=== PATIENT | male | born 1990 | race Caucasian/White ===

== ENCOUNTER 2021-07-15 12:10 | Outpatient (REF) | payer OTHER, SELFPAY ==
[2021-07-15 14:29] LABS: Alanine Aminotransferase 64 U/L (0-40); Albumin Level 4.5 g/dL (3.5-5.0); Alkaline Phosphatase 85 U/L (39-117); Anion Gap 12 (12-20); Aspartate Amino Transferase 24 U/L (5-37); Bilirubin Total 0.6 mg/dL (0.0-1.0); Blood Urea Nitrogen 15 mg/dL (9-16); Calcium 10.3 mg/dL (8.4-10.2); Carbon Dioxide 30 mmol/L (22-29); Chloride 105 mmol/L (96-108); Cholesterol 190 mg/dL; Estimated Glomerular Filt Rate > 60; Glucose Fasting 80 mg/dL (60-99); HDL Cholesterol 41 mg/dL; LDL Cholesterol Calculated 124 mg/dl; Potassium 4.3 mmol/L (3.3-5.1); Sodium 143 mmol/L (135-145); Triglycerides 129 mg/dL
[2021-07-15 14:50] LABS: TSH reflex Free T4 1.29 uIU/mL (0.32-4.0)
[2021-07-19 12:41] LABS: Testosterone, Total 207 ng/dL (250-1100)
== END 2021-07-15 12:11 | disposition home or self-care (01) ==
LOC: HO.HMGCLDS 12:10
PROVIDERS: PCP Nurse Practitioner Family; Visit Provider Nurse Practitioner Family
DX: Z00.00 Encounter for general adult medical examination without abnormal findings (principal); Z13.220 Encounter for screening for lipoid disorders; Z13.29 Encounter for screening for other suspected endocrine disorder
CPT/HCPCS: 36415; 80053; 80061; 84403; 84443

== ENCOUNTER 2021-09-02 14:08 | Outpatient (REF) | payer OTHER, SELFPAY ==
[2021-09-02 16:32] LABS: Appearance Urine CLEAR; Color Urine YELLOW; Glucose Urine UA NEG (NEG); Leukocyte Esterase Urine NEG (NEG); Nitrite Urine NEG (NEG); PH 6.5 (5.0-8.0); Urine Blood NEG (NEG); Urine Ketones 5 MG/DL (NEG); Urine Protein NEG (NEG-TRACE)
== END 2021-09-02 14:09 | disposition home or self-care (01) ==
LOC: HO.HMGCLNP 14:08
PROVIDERS: Visit Provider Nurse Practitioner Family
DX: Z00.00 Encounter for general adult medical examination without abnormal findings (principal)
CPT/HCPCS: 81003

== ENCOUNTER 2023-03-05 15:56 | Outpatient (AMB) | payer OTHER, SELFPAY ==
--- NOTE | 2023-03-05 11:09 | A.OFFVIS_ITS ---
Intake Intake Visit Reasons: 1m/balanitis Intake Note: Patient presents today for a follow-up on Balanitis: Meds- None Allergies to Antibiotic- No Known Allergies Blood Thinner- None [employer] Required: No Accompanied by: Self / Same As Patient Allergies No Known Allergies Allergy (Verified 04/22/23 14:32) HPI HPI Comments History of Present Illness Details Julio is a 32-year-old male who presents toady to the office for a 1 month follow-up. 03/05/2023? Julio is followed due to balanitis. He was last seen by me on 05/29/2022 for balanitis. Ketoconazole 2% was ordered at that time.? Circumcision discussed pending improvement in symptoms with antifungal cream. Patient states that the trouble with retracting the foreskin has been worsening at this time. He states that the antifungal creams did not help him. He denies any burning with urination. Review of charts: Last visit: 05/29/2022? Julio is a 32 year old male who is here for evaluation before phimosis.? He states that he is in a monogamous relationship.? He states that he has had trouble with retracting the foreskin which started 4 month ago after the of his son.? He denies irritative voiding symptoms.? He states he has pain with erections.? He states that his PCP gave him a cream to and he admits he has not been using the cream every day.? In review of his medication last he has been prescribed betamethasone cream.? On examination there is balanitis of the foreskin I a.m. able to retract the foreskin over the glans.? I have discussed that I would like to use a combination steroid and antifungal cream.? I have discussed that if the condition does not improve with the antifungal/steroid creams that circumcision may be considered. Plan:Ketoconazole 2%, fu in 3-4 wks; Circumcision discussed pending improvement in symptoms with antifungal cream. 03/05/2023: Plan: Consent form was obtained for circumcision procedure. [facility] Medical History GERD (gastroesophageal reflux disease) Surgical History S/P lumbar microdiscectomy Hx of cholecystectomy Hx of circumcision History of surgery H/O wrist surgery Family History Father HTN (hypertension) Heart disease Mother No problems noted. Brother No problems noted. Brother No problems noted. Sister No problems noted. Maternal Grandmother No problems noted. Maternal Grandfather No problems noted. Paternal Grandfather No problems noted. Paternal Grandmother No problems noted. Social History Housing: House Alcohol intake: current Alcohol intake frequency: holidays/special occasions only Patient Tobacco Use Status: Never used Tobacco e-Cigarette/Vaping Use: Never Used Second Hand Smoke Exposure: No service: Yes Current occupational status: employed Current occupation: [employer] Current occupational exposures/hazards: No Cognitive needs: No Hearing needs: No Vision needs: No Review of Systems Const All systems reviewed & are unremarkable except as noted in HPI and below Reports no additional complaints Eyes Reports no additional complaints ENT Reports no additional complaints Card Denies dyspnea Resp Denies cough and Denies dyspnea GI Reports no additional complaints Musc Reports no additional complaints Skin/Breast Denies rash and Denies unusual bruising Neuro Reports no additional complaints Psych Reports no additional complaints Endo Reports no additional complaints Edson/Lymph Reports no additional complaints Aller/Immun Reports no additional complaints Assessment & Plan Assessment & Plan (1) Balanitis: Code(s): N48.1 - Balanitis (2) Phimosis: Code(s): N47.1 - Phimosis Plan Consent form was obtained for circumcision procedure. Patient Instructions: The patient had an opportunity to ask questions regarding treatment plan. All questions were answered. Imaging, Laboratory studies and physical exam results were discussed and reviewed in detail. No major barriers to understanding were identified. The patient expressed understanding and agreement with the above treatment plan.? ? ? The patient is aware they should contact our office by phone for worsening of their current condition or the appearance of new symptoms. Compliance is encouraged with any medications and followup testing that is ordered.? ? ? It is a privilege to be allowed the opportunity to participate in the urologic care of your patient. If you have any questions or concerns regarding treatment for the above conditions please do not hesitate to contact me. The office telephone contact is [phone].? ? ? This note is constructed in part using voice recognition software. While every effort has been made to ensure accuracy guide escort errors may have been included.? ? ? Yours sincerely,? ? ? Quentin Samuel MD? Coding Level of Care Code Est Pt Level 3 (04239) Diagnoses Balanitis N48.1 Phimosis N47.1
== END 2023-03-05 16:30 | disposition home or self-care (01) ==
PROVIDERS: PCP Nurse Practitioner Family; Visit Provider Urology
DX: N48.1 Balanitis (principal); N47.1 Phimosis
CPT/HCPCS: 99213

== ENCOUNTER → 2023-03-05 15:56 | Outpatient (BNVA) | payer SELFPAY | PROVIDERS: PCP Nurse Practitioner Family; Visit Provider Urology | DX: N48.1 Balanitis (principal); N47.1 Phimosis | CPT/HCPCS: 99212 ==

== ENCOUNTER 2023-03-10 08:42 | Day surgery (SDC) | payer OTHER, SELFPAY ==
[2023-03-10 08:57] VITALS: BMI 32.3
[2023-03-10 09:16] VITALS: BP 148/75; PULSE 69; RESP 18; TEMP 36.7; O2SAT 98
--- NOTE | 2023-03-10 10:29 | HO.ANESPROP2 ---
HPI - Anesthesia Eval Consult details Narrative: 32 yo male patient for Circumcision PMFSH Active Problems Active Problems: All Active Problems (Updated 03/10/23 @ 10:30 by Chely Lara MD) Physical exam (Acute) Balanitis (Acute) Insomnia (Acute) Tinnitus (Acute) Phimosis (Acute) Eyelid cyst (Acute) S/P cholecystectomy (Acute) GERD (gastroesophageal reflux disease) (Acute) Impacted cerumen of left ear (Acute) Physical exam (Acute) Palpable lymph node (Acute) Cervical adenopathy (Acute) Abscess (Acute) Snores but denies PACO Family History Family History Father HTN (hypertension) Heart disease Mother No problems noted. Brother No problems noted. Brother No problems noted. Sister No problems noted. Maternal Grandmother No problems noted. Maternal Grandfather No problems noted. Paternal Grandfather No problems noted. Paternal Grandmother No problems noted. Family history of problems with anesthesia: No Surgical History Surgical History H/O wrist surgery History of surgery History of Problems with Anesthesia: No Social History Social History Housing: House Alcohol intake: current Alcohol intake frequency: holidays/special occasions only Patient Tobacco Use Status: Never used Tobacco e-Cigarette/Vaping Use: Never Used Second Hand Smoke Exposure: No Are you DNR?: No Advance Directives: No Advance Directives Information Provided: Yes Nutrition Risks: No Nutritional Risk service: Yes Current occupational status: employed Current occupation: [employer] Current occupational exposures/hazards: No Cognitive needs: No Hearing needs: No Vision needs: No Meds Allergies Allergy/AdvReac Type Severity Reaction Status Date / Time No Known Allergies Allergy Verified 03/10/23 09:22 Home Medications Medication Instructions Recorded Confirmed Last Taken Type No Known Home Meds 03/10/23 03/10/23 Unknown History Exam Exam Date and Time: March 10, 2023 1029 Height,Weight and Vital Signs: Height 5 ft 6 in Weight 90.718 kg Last Vital Signs Temp 98.1 F 03/10/23 09:16 Pulse 69 03/10/23 09:16 Resp 18 03/10/23 09:16 BP 148/75 H 03/10/23 09:16 Pulse Ox 98 03/10/23 09:16 O2 Del Method Room Air 03/10/23 09:16 Airway Mallampati Class: II TM Dist: >3cm Neck ROM: Full Loose/Missing/Broken Teeth: No (Denies broken, loose, missing teeth) Heart: RRR Lungs: CTAB Assessment and Plan Assessment Anesthesia Assessment: Anesthesia Plan Discussed and Chart Reviewed Final Anesthetic Review Family History of Problems with Anesthesia: No History of Problems with Anesthesia: No NPO: Yes ASA Class: I Final Preanesthetic Review: No Changes in Pt Med Stat, Meds/Allgs Chart Reviewed, Consent Obtained/Reviewed and Anes Risks/Benef Reviewed Patient Risk: Low Procedure Risk: Low Assessment/Block/Sedation in SS: Assess/Block/Sedation-SS Anesthetic Plan Anesthetic Plan: GA Disposition: Standard PACU
[2023-03-10] MEDS: Lactated Ringers 1,000 ML 100 ML IVCONT (11:00)
--- NOTE | 2023-03-10 11:40 | MHC.SHP ---
Pre-Procedural Eval Section A Date of Service: 03/10/23 The patient is an INPATIENT: No The History & Physical has been completed within 30 days and I have reviewed it.: Yes Section B Chief Complaint: Balanitis Allergies: Allergies Allergy/AdvReac Type Severity Reaction Status Date / Time No Known Allergies Allergy Verified 03/10/23 09:22 Plan Diagnosis/Plan: Unchanged I have reviewed the history and physical and performed a pertinent physical examination on my patient. No changes have occurred unless specified. Circumsicion. Time Spent With Patient Time: Total time managing care of this patient today ____ minutes.
--- NOTE | 2023-03-10 13:28 | W.PM.OPN ---
Operative Note Operative Note Date of Service: 03/10/23 Narrative: PreOperative Diagnosis:? ? Recurrent Balanitis, redundant foreskin Post Operative Diagnosis:?Recurrent Balanitis, redundant foreskin Procedure:?Circumcision Surgeon:?Dr Quentin Samuel Anesthesia:? General Procedure: After informed consent was verified the patient was brought to the operating room and placed in a supine position.? Anesthesia was performed per protocol. The patient was prepped and draped in the usual sterile fashion. Safety pause time-out was performed. Antibiotics confirmed. Penile block was performed. With the foreskin over the glans a circumferential incision is made at the level of the whitaker. The fore skin was then retracted and a circumferential incision was made 0.5 cm below the whitaker. The foreskin is removed with cautery. The skin is closed in 4 quadrants with 4-0 chromic, each quadrant closed with interrupted 4-0 chromic, bacitracin ointment was used over the incision and incision covered with cling. The patient tolerated the procedure well and was transferred to the recovery area upon completion. Complications: None
[2023-03-10 13:30] VITALS: BP 121/72; PULSE 93; RESP 16; TEMP 36.3; O2SAT 97
[2023-03-10 13:35] VITALS: BP 139/74; PULSE 91; RESP 16; O2SAT 96
[2023-03-10 13:40] VITALS: BP 126/76; PULSE 83; RESP 16; O2SAT 96
[2023-03-10 13:45] VITALS: BP 136/71; PULSE 82; RESP 18; O2SAT 94
[2023-03-10] MEDS: Acetaminophen 325 MG TABLET 975 MG PO (13:52)
[2023-03-10 13:54] VITALS: BP 130/69; PULSE 78; RESP 18; TEMP 36.3; O2SAT 94
== END 2023-03-10 14:21 | disposition home or self-care (01) ==
PROVIDERS: PCP Nurse Practitioner Family; Visit Provider Urology
PROC: (CPT 54161; principal; 2023-03-10 10:30)
DX: N48.1 Balanitis (principal); N47.1 Phimosis
CPT/HCPCS: 54161; 88304; J0690; J1100; J2250; J2405; J2795; J3010

== ENCOUNTER → 2023-03-10 08:42 | Outpatient (BNV) | payer OTHER, SELFPAY | PROVIDERS: PCP Nurse Practitioner Family; Visit Provider Urology | DX: N48.1 Balanitis (principal) | CPT/HCPCS: 54161 ==

== ENCOUNTER → 2023-03-18 15:23 | Outpatient (BNVA) | payer OTHER, SELFPAY | PROVIDERS: PCP Nurse Practitioner Family; Visit Provider Urology ==

== ENCOUNTER 2023-04-22 14:17 | Outpatient (AMB) | payer OTHER, SELFPAY ==
--- NOTE | 2023-04-22 14:30 | MHC.OFFVIS ---
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 04/22/23: The patient underwent circumcision on 03/10/23 for recurrent balanitis and redundant foreskin. He states that the initial day of the recovery was rough, but eventually got better. He was concerned about the numbness on the left side of the glans. He did have an intercourse x 1. He had a normal erection and was able to ejaculate. I discussed with the patient that he is still in the healing process. I have indicated that the sensation may not be exactly the same as before the circumcision. He states that he understood, and he is instructed to call for any concerns. 03/10/23 ? surgical pathology results reviewed: Foreskin, excision: Skin with features of lichen sclerosus, no evidence of dysplasia or malignancy. Plan: I discussed with the patient that he is still in the healing process. I have indicated that the sensation may not be exactly the same as before the circumcision. He states that he understood, and he is instructed to call for any concerns. The patient will follow up. P.R.N.? [facility] Medical History GERD (gastroesophageal reflux disease) Surgical History S/P lumbar microdiscectomy Hx of cholecystectomy Hx of circumcision History of surgery H/O wrist surgery Family History Father HTN (hypertension) Heart disease Mother No problems noted. Brother No problems noted. Brother No problems noted. Sister No problems noted. Maternal Grandmother No problems noted. Maternal Grandfather No problems noted. Paternal Grandfather No problems noted. Paternal Grandmother No problems noted. Social History Housing: House Alcohol intake: current Alcohol intake frequency: holidays/special occasions only Patient Tobacco Use Status: Never used Tobacco e-Cigarette/Vaping Use: Never Used Second Hand Smoke Exposure: No service: Yes Current occupational status: employed Current occupation: [employer] Current occupational exposures/hazards: No Cognitive needs: No Hearing needs: No Vision needs: No Review of Systems Const All systems reviewed & are unremarkable except as noted in HPI and below Reports no additional complaints Eyes Reports no additional complaints ENT Reports no additional complaints Card Reports no additional complaints Resp Reports no additional complaints GI Reports no additional complaints Musc Reports no additional complaints Skin/Breast Reports system reviewed and no additional complaints, except as documented Neuro Reports no additional complaints Psych Reports no additional complaints Endo Reports no additional complaints Edson/Lymph Reports no additional complaints Aller/Immun Reports no additional complaints Physical Exam Const General: healthy appearing, no acute distress and well developed Orientation/consciousness: patient oriented x3 HEENT Head: Yes normocephalic and Yes atraumatic Eyes Conjunctivae: conjunctivae normal Neck Neck: Yes normal visual inspection Chest Chest palpation & inspection: normal inspection of the chest Resp Effort & Inspection: normal respiratory effort Cardio Rate: regular rate GI Inspection: Yes normal to inspection Skin Other: Incision area is well healed. No sign of the infection. General skin exam: no rashes or lesions noted Neuro General: patient oriented x3 Extrem General: Yes no pedal edema Psych Appearance: grossly normal Affect: normal affect Assessment & Plan Assessment & Plan (1) Balanitis: Code(s): N48.1 - Balanitis (2) Phimosis: Code(s): N47.1 - Phimosis (3) Status post routine circumcision: Code(s): Z98.890 - Other specified postprocedural states Plan I discussed with the patient that he is still in the healing process. I have indicated that the sensation may not be exactly the same as before the circumcision. He states that he understood, and he is instructed to call for any concerns. The patient will follow up. P.R.N.? Patient Instructions: The patient had an opportunity to ask questions regarding treatment plan. All questions were answered. Imaging, Laboratory studies and physical exam results were discussed and reviewed in detail. No major barriers to understanding were identified. The patient expressed understanding and agreement with the above treatment plan. The patient is aware they should contact our office by phone for worsening of their current condition or the appearance of new symptoms. Compliance is encouraged with any medications and followup testing that is ordered. It is a privilege to be allowed the opportunity to participate in the urologic care of your patient. If you have any questions or concerns regarding treatment for the above conditions please do not hesitate to contact me. The office telephone contact is [phone]. This note is constructed in part using voice recognition software. While every effort has been made to ensure accuracy research consultant errors may have been included. Yours sincerely, Quentin Samuel MD Coding Level of Care Code Est Pt Level 3 (24603) Diagnoses Balanitis N48.1 Phimosis N47.1 Status post routine circumcision Z98.890
== END 2023-04-22 14:41 | disposition home or self-care (01) ==
PROVIDERS: PCP Nurse Practitioner Family; Visit Provider Urology
DX: N48.1 Balanitis (principal); N47.1 Phimosis; Z98.890 Other specified postprocedural states
CPT/HCPCS: 99213

== ENCOUNTER → 2023-04-22 14:17 | Outpatient (BNVA) | payer OTHER, SELFPAY | PROVIDERS: PCP Nurse Practitioner Family; Visit Provider Urology | DX: N48.1 Balanitis (principal); N47.1 Phimosis; Z98.890 Other specified postprocedural states | CPT/HCPCS: 99212 ==

== ENCOUNTER 2023-07-15 07:34 | Outpatient (AMB) | payer OTHER, SELFPAY ==
--- NOTE | 2023-07-15 07:42 | MHC.PC.OV ---
Vital Signs 07/15/23 07:44 Height 5 ft 6.5 in Weight 205 lb BMI 32.6 BP 120/68 Blood Pressure Location Lt brachial Position Sitting Pulse 74 Pulse Source Pulse Oximeter Pulse Oximetry (%) 99 Oxygen Delivery Method Room Air Intake Visit Reasons: annual PE Intake Note: Pt is here today for his PE Allergies No Known Allergies Allergy (Verified 07/15/23 07:45) Medication List - Last Reconciled 07/15/23 by SERGIO Jimenez meloxicam 7.5 mg PO DAILY Tobacco use date assessed: 07/15/23 Dental Screening Dental Screen Date: 07/15/23 Did you have a dental visit in the last 12 months?: Yes Did you have a dental problem in the last 6 months where you did not have access to dental care?: No Was dental information given to patient?: Patient has dentist HPI annual PE HPI Details pt is here for a PE. He offers no questions or concerns. He will be following up with urology for possible TRT (pt reported has not taken steroids/testosterone supplement in over 3 months) [facility] Medical History GERD (gastroesophageal reflux disease) Surgical History S/P lumbar microdiscectomy Hx of cholecystectomy Hx of circumcision History of surgery H/O wrist surgery Family History Father HTN (hypertension) Heart disease Mother No problems noted. Brother No problems noted. Brother No problems noted. Sister No problems noted. Maternal Grandmother No problems noted. Maternal Grandfather No problems noted. Paternal Grandfather No problems noted. Paternal Grandmother No problems noted. Social History Housing: House Alcohol intake: current Alcohol intake frequency: holidays/special occasions only Patient Tobacco Use Status: Never used Tobacco e-Cigarette/Vaping Use: Never Used Second Hand Smoke Exposure: No service: Yes Current occupational status: employed Current occupation: [employer] Current occupational exposures/hazards: No Cognitive needs: No Hearing needs: No Vision needs: No Questionnaire PHQ-9 Over the last 2 weeks, how often have you been bothered by any of the following problems? 1. Little interest or pleasure in doing things: not at all 2. Feeling down, depressed, or hopeless: not at all 3. Trouble falling or staying asleep, or sleeping too much: not at all 4. Feeling tired or having little energy: several days 5. Poor appetite or overeating: not at all 6. Feeling bad about yourself - or that you are a failure or have let yourself or your family down: not at all 7. Trouble concentrating on things, such as reading the newspaper or watching television: not at all 8. Moving or speaking so slowly that other people could have noticed. Or the opposite - being so fidgety or restless that you have been moving around a lot more than usual: not at all 9. Thoughts that you would be better off or of hurting yourself in some way: not at all Total score: 1 Depression Screening Interpretation: Negative Depression Screening Done: Yes 87248 - PHQ-9 Billing: Yes Source: Developed by Drs. Schuyler Holbrook, Ana Maloney, Isaac Vigil and colleagues, with an educational neena from [employer]. Thrive Questionnaire Date Thrive assessed: 07/15/23 I am a: Patient What is your living situation today?: I have a steady place to live Within the past 12 months, did the food you bought not last and you didn't have the money to get more?: Never true Within the past 12 months, did you worry whether your food would run out before you got money to buy more?: Never true Do you have trouble paying for medicines?: No Do you have trouble getting transportation to medical appointments?: No Do you have trouble paying your heating and electricity bill?: No Do you have trouble taking care of your child, family member or friend?: No Do you have trouble with day-to-day activities such as bathing, preparing meals, shopping, managing finances, etc.?: No Are you currently unemployed and looking for a job?: No Are you interested in more education?: No Currently or been in a relationship where the following occur: no concerns reported AUDIT C Alcohol Use Questionnaire (AUDIT-C) 1. How often do you have a drink containing alcohol?: Monthly or less 2. How many drinks containing alcohol do you have on a typical day when you are drinking?: 1 or 2 3. How often do you have six or more drinks on one occasion?: Never Total Score: 1 Score Reviewed/Action Taken: No FATOU-7 AMB Questionnaire FATOU-7 Date FATOU - 7 assessed: 07/15/23 Feeling nervous, anxious, or on edge: 3 = Nearly every day Not being able to stop or control worryin = Not at all Worrying too much about different things: 0 = Not at all Trouble relaxin = Not at all Being so restless that it is hard to sit still: 0 = Not at all Becoming easily annoyed or irritable: 0 = Not at all Feeling afraid as if something awful might happen: 0 = Not at all Total FATOU-7 score (0-4 normal; 5-9 mild; 10-14 moderate; 15-21 severe): 3 Source: Developed by Drs. Schuyler Holbrook, Ana Maloney, Isaac Vigil and colleagues, with an educational neena from [employer]. FATOU-7 Assessment Billing FATOU-7 Assessment Tool: FATOU-7 Assessment 41418 Review of Systems Const Denies chills and Denies fever(s) Eyes Denies blurry vision ENT Denies vertigo, Denies dizziness and Denies sore throat Card Denies chest pain at rest, Denies chest pain with activity, Denies diaphoresis, Denies dyspnea and Denies dyspnea on exertion Resp Denies cough, Denies dyspnea, Denies dyspnea on exertion and Denies wheezing GI Denies abdominal pain, Denies melena, Denies hematochezia, Denies constipation, Denies diarrhea and Denies loose stools Denies hematuria Musc Denies numbness and Denies tingling Skin/Breast Denies lesions Neuro Denies vertigo, Denies dizziness, Denies numbness and Denies tingling Psych Denies anxiety, Denies depression, Denies homicidal ideation, Denies suicidal ideation and Denies other (substance abuse) Aller/Immun Denies wheezing Physical exam (Primary Care) Vital Signs: Last Vital Signs Pulse 74 07/15/23 07:44 BP 120/68 07/15/23 07:44 Pulse Ox 99 07/15/23 07:44 Oxygen Delivery Method Room Air 07/15/23 07:44 BMI result Body Mass Index 32.6 Tobacco/Smoking Status: Tobacco use Status Tobacco use date assessed 07/15/23 07/15/23 07:47 Patient Tobacco Use Status Never used Tobacco 07/15/23 07:44 e-Cigarette/Vaping Use Never Used 07/15/23 07:44 Depression Screening Interpretation: Negative Thrive Assessment: Date of Thrive Assessment Date Thrive assessed 04/22/22 07/15/23 07:44 Currently or been in a relationship where the following occur: no concerns reported Const General: cooperative Nutritional Appearance: well nourished Orientation/consciousness: patient oriented x3 HENMT Head: Yes normal to inspection, Yes normocephalic and Yes atraumatic Ears: TM normal on the right and TM normal on the left Eyes General: appearance normal, both eyes and all related structures Alignment and Position: alignment normal and position normal Neck Neck: Yes normal visual inspection and Yes no lymphadenopathy Resp Effort & Inspection: normal respiratory effort Auscultation: clear to auscultation bilaterally Cardio Rate: regular rate Rhythm: regular rhythm Heart sounds: S1 normal heart sound present, S2 normal heart sound present and no murmurs GI Palpation (GI): Soft to palpation and nontender Auscultation: normal bowel sounds Male General Exam: Yes normal external exam Penis: normal penis Scrotum: scrotum normal, testes descended bilaterally and no inguinal hernias Testes: no testicular mass Skin Rashes: no rashes Neuro General: patient oriented x3, moves all extremities, no focal motor deficits and deep tendon reflexes 2+ bilaterally Romberg Test: Negative Extrem Right lower extremity: no edema Left lower extremity: no edema Psych Affect: normal affect Attitude: cooperative Thought process: Normal thought process present Assessment and Plan Assessment & Plan (1) Physical exam: Code(s): Z00.00 - Encounter for general adult medical examination without abnormal findings (2) Physical exam: Code(s): Z00.00 - Encounter for general adult medical examination without abnormal findings Orders: Orders TSH reflex Free T4 Today Z00.00 - Encounter for general adult medical examination without abnormal findings UA CC w/rflx Micro + Cult Today Z00.00 - Encounter for general adult medical examination without abnormal findings Lipid Panel Today Z00.00 - Encounter for general adult medical examination without abnormal findings Complete Blood Count Auto Diff Today Z00.00 - Encounter for general adult medical examination without abnormal findings Comprehensive [place]. Panel Fast Today Z00.00 - Encounter for general adult medical examination without abnormal findings Coding Level of Care Code Est Pt Prev Care 18-39y(12742) Diagnoses Physical exam Z00.00 Additional Codes FATOU-7 Assessment Billing - FATOU-7 Assessment Tool: FATOU-7 Assessment [id number] ([id number])
[2023-07-15 07:44] VITALS: BP 120/68; PULSE 74; O2SAT 99; BMI 32.6
== END 2023-07-15 10:20 | disposition home or self-care (01) ==
PROVIDERS: Visit Provider Nurse Practitioner Family
DX: Z00.00 Encounter for general adult medical examination without abnormal findings (principal)
CPT/HCPCS: 99395

== ENCOUNTER 2023-08-03 08:37 | Outpatient (AMB) | payer OTHER, SELFPAY ==
--- NOTE | 2023-08-03 08:44 | AM.OFFWIN_ITS ---
Intake Vital Signs 08/03/23 08:45 Height 5 ft 6.5 in Weight 202 lb BMI 32.1 BP 122/78 Blood Pressure Location Lt brachial Position Sitting Pulse 76 Pulse Source Pulse Oximeter Temp 98.0 F Temp Source Oral Pulse Oximetry (%) 98 Oxygen Delivery Method Room Air Intake Visit Reasons: EP Lump/Cyst tailbone [phone] Intake Note: pt is here for lump possible cyst on tailbone, patient states he thinks it popped/drained on thursday and wants to make sure its OK Patient Tobacco Use Status: Never used Tobacco Allergies No Known Allergies Allergy (Verified 08/03/23 08:45) Do you need a note to return to daycare/school/sports/work: Yes HPI EP Lump/Cyst tailbone [phone] HPI Details 33 yr old male presents to the office fo r a sick visit. Patient reports he has a small swelling at the end of his tailbone. Two days ago the swelling popped and little fluid came out. Would like the area examined. [facility] Medical History GERD (gastroesophageal reflux disease) Surgical History S/P lumbar microdiscectomy Hx of cholecystectomy Hx of circumcision History of surgery H/O wrist surgery Family History Father HTN (hypertension) Heart disease Mother No problems noted. Brother No problems noted. Brother No problems noted. Sister No problems noted. Maternal Grandmother No problems noted. Maternal Grandfather No problems noted. Paternal Grandfather No problems noted. Paternal Grandmother No problems noted. Social History Housing: House Alcohol intake: current Alcohol intake frequency: holidays/special occasions only Patient Tobacco Use Status: Never used Tobacco e-Cigarette/Vaping Use: Never Used Second Hand Smoke Exposure: No service: Yes Current occupational status: employed Current occupation: [employer] Current occupational exposures/hazards: No Cognitive needs: No Hearing needs: No Vision needs: No Physical Exam Vital Signs: Last Vital Signs Temp 98.0 F 08/03/23 08:45 Pulse 76 08/03/23 08:45 BP 122/78 08/03/23 08:45 Pulse Ox 98 08/03/23 08:45 Oxygen Delivery Method Room Air 08/03/23 08:45 BMI result Body Mass Index 32.1 Back/Spine/Pelvis Other: Sacrum: No lump palpable. No erythematous area. Assessment & Plan Assessment & Plan (1) Cyst near coccyx: Code(s): L05.91 - Pilonidal cyst without abscess Plan: The swelling could have been a small cyst which is no longer present. Reassurance. Coding Level of Care Code Est Pt Level 3 (74490) Diagnoses Cyst near coccyx L05.91
[2023-08-03 08:45] VITALS: BP 122/78; PULSE 76; TEMP 36.7; O2SAT 98; BMI 32.1
== END 2023-08-03 10:40 | disposition home or self-care (01) ==
PROVIDERS: PCP Nurse Practitioner Family; Visit Provider Internal Medicine
DX: L05.91 Pilonidal cyst without abscess (principal)
CPT/HCPCS: 99213

== ENCOUNTER 2023-08-03 09:18 | Outpatient (REF) | payer OTHER, SELFPAY ==
[2023-08-03 11:27] LABS: Appearance Urine Clear; Color Urine Yellow; Glucose Urine UA Negative (Negative); Leukocyte Esterase Urine Negative (Negative); Nitrite Urine Negative (Negative); PH 5.5 (5.0-9.0); Specific Gravity - Urine 1.025 (1.005-1.025); Urine Blood Negative (Negative); Urine Ketones Trace mg/dL (Negative); Urine Protein Negative (Neg-Trace)
[2023-08-03 11:41] LABS: MANUAL DIFF FLAG NO
[2023-08-03 12:32] LABS: Alanine Aminotransferase 40 U/L (0-40); Albumin Level 4.1 g/dL (3.5-5.0); Alkaline Phosphatase 63 U/L (39-117); Anion Gap 9 (12-20); Aspartate Amino Transferase 21 U/L (5-37); Bilirubin Total 0.5 mg/dL (0.0-1.0); Blood Urea Nitrogen 14 mg/dL (9-16); Calcium 9.8 mg/dL (8.4-10.2); Carbon Dioxide 31 mmol/L (22-29); Chloride 108 mmol/L (96-108); Cholesterol 146 mg/dL (<200); Estimated Glomerular Filt Rate > 60; Glucose Fasting 90 mg/dL (60-99); HDL Cholesterol 36 mg/dL (>40); LDL Cholesterol Calculated 95 mg/dL (<100); Potassium 4.2 mmol/L (3.3-5.1); Sodium 144 mmol/L (135-145); TSH reflex Free T4 0.63 uIU/mL (0.32-4.0); Total Protein 7.5 g/dL (6.5-8.0); Triglycerides 77 mg/dL (<150)
[2023-08-03 12:49] LABS: Basophils Percent Auto 0.6 % (0-2); Eosinophils Absolute Auto 0.1 X10*3/uL (0.0-0.4); Eosinophils Percent Auto 1.5 % (0-4); Hematocrit 45.6 % (42.0-52.0); Hemoglobin 15.3 g/dl (14.0-18.0); Imm Gran Abs Auto 0.03 X10*3/uL (0.00-0.03); Imm Gran Pct Auto 0.6 % (0.0-0.4); Lymphocytes Absolute Auto 1.6 X10*3/uL (1.2-4.9); Lymphocytes Percent Auto 34.8 % (20-40); Mean Corpuscular HGB Conc 33.6 g/dl (31.0-36.0); Mean Corpuscular Hemoglobin 28.1 pg (27.0-33.0); Mean Corpuscular Volume 83.8 fL (80.0-98.0); Mean Platelet Volume 10.6 fL (9.4-12.4); Monocytes Absolute Auto 0.2 X10*3/uL (0.1-1.2); Monocytes Percent Auto 4.9 % (2-11); Neutrophils Absolute Auto 2.7 x10*3/uL (2.0-8.3); Neutrophils Percent Auto 57.6 % (45-73); Platelet Count 218 X10*3/uL (160-400); Red Blood Count 5.44 X10*6/uL (4.60-5.80); Red Cell Distribution Width 12.3 % (11.0-16.0); White Blood Count 4.7 X10*3/uL (4.8-10.8)
[2023-08-17 15:03] LABS: Testosterone, Total 252 ng/dL (250-1100)
== END 2023-08-03 09:19 | disposition home or self-care (01) ==
LOC: HO.HMGCLDS 09:18
PROVIDERS: PCP Nurse Practitioner Family; Referring Provider Urology; Visit Provider Nurse Practitioner Family
DX: Z00.00 Encounter for general adult medical examination without abnormal findings (principal); Z13.9 Encounter for screening, unspecified
CPT/HCPCS: 36415; 80053; 80061; 81003; 84402; 84403; 84443; 85025

== ENCOUNTER 2023-08-20 08:32 | Outpatient (REF) | payer OTHER, SELFPAY ==
--- NOTE | ~2023-08-20 | XR_ITS ---
EXAMINATION: XR LUMBOSACRAL SPINE CLINICAL INFORMATION: Reason for Exam M54.50 - Low back pain, unspecified COMPARISON: Lumbar spine radiographs 09/21/2017 TECHNIQUE: 3 views of the lumbar spine FINDINGS: 5 nonrib-bearing lumbar-type vertebral bodies. Few small Schmorl's nodes similar to prior. Vertebral body heights are otherwise maintained. Levoconvex curvature of the lumbar spine. Mild degenerative disc disease at L4-L5 and L5-S1 similar to prior. Right upper quadrant cholecystectomy clips. XR/XR lumbar spine 2-3V IMPRESSION: 1. Levoconvex curvature of the lumbar spine. 2. Mild degenerative disc disease at L4-L5 and L5-S1 similar to prior.
== END 2023-08-20 08:33 | disposition home or self-care (01) ==
LOC: HO.XRAY 08:32
PROVIDERS: PCP Nurse Practitioner Family; Visit Provider Urology
DX: M54.50 Low back pain, unspecified (principal); G89.29 Other chronic pain
CPT/HCPCS: 72100; 99212

== ENCOUNTER 2023-08-20 08:32 | Outpatient (AMB) | payer OTHER, SELFPAY ==
--- NOTE | 2023-08-20 08:47 | A.OFFVIS_ITS ---
Intake Intake Visit Reasons: follow up Intake Note: Patient presents today for a follow-up on Testosterone Labs Results: Meds- None Allergies to Antibiotic- No Known Allergies Blood Thinner- None Manager Of Sustainability Required: No Accompanied by: Self / Same As Patient Allergies No Known Allergies Allergy (Verified 08/03/23 08:45) HPI HPI Comments History of Present Illness Details 08/20/23 Julio is a 32-year-old male who p resents toady to the office for follow-up with concerns regarding low testosterone. He was evaluated for phimosis and balanitis, had circumcision done 03/10/23. He states that he has had fatigue and is concerned about having low testosterone. Discussed blood work for LH FSH, free and total testosterone and other markers Review of chart: 04/22/23: The patient underwent circumci angeles on 03/10/23 for recurrent balanitis and redundant foreskin. He states that the initial day of the recovery was rough, but eventually got better. He was concerned about the numbness on the left side of the glans. He did have an intercourse x 1. He had a normal erection and was able to ejaculate. I discussed with the patient that he is still in the healing process. I have indicated that the sensation may not be exactly the same as before the circumc ision. He states that he understood, and he is instructed to call for any concerns. Reviewed surgical pathology-- 03/10/23 ? surgical pathology results reviewed: Foreskin, excision: Skin with features of lichen sclerosus, no evidence of dysplasia or malignancy. 03/05/2023? Julio is followed due to balanitis. He was last seen by me on 05/29/2022 for balanitis. Ketoconazole 2% was ordered at that time.? Circumcision discussed pending improvement in symptoms with antifungal cream. Patient states that the trouble with retracting the foreskin has been worsening at this time. He states that the antifungal creams did not help him. He denies any burning with urination. Consent form was obtained for circumcision procedure. 05/29/2022? Julio is a 32 year old male who is here for evaluation before phimosis.? He states that he is in a monogamous relationship.? He states that he has had trouble with retracting the foreskin which started 4 month ago after the of his son.? He denies irritative voiding symptoms.? He states he has pain with erections.? He states that his PCP gave him a cream to and he admits he has not been using the cream every day.? In review of his medication last he has been prescribed betamethasone cream.? On examination there is balanitis of the foreskin I a.m. able to retract the foreskin over the glans.? I have discussed that I would like to use a combination steroid and antifungal cream.? I have discussed that if the condition does not improve with the antifungal/steroid creams that circumcision may be considered. Plan:Ketoconazole 2%, fu in 3-4 wks; Circumcision discussed pending improvement in symptoms with antifungal cream. 08/20/2023: Plan:LH FSH, free and total te stosterone and other markers PFSH Medical History GERD (gastroesophageal reflux disease) Surgical History S/P lumbar microdiscectomy Hx of cholecystectomy Hx of circumcision History of surgery H/O wrist surgery Family History Father HTN (hypertension) Heart disease Mother No problems noted. Brother No problems noted. Brother No problems noted. Sister No problems noted. Maternal Grandmother No problems noted. Maternal Grandfather No problems noted. Paternal Grandfather No problems noted. Paternal Grandmother No problems noted. Social History Housing: House Alcohol intake: current Alcohol intake frequency: holidays/special occasions only Patient Tobacco Use Status: Never used Tobacco e-Cigarette/Vaping Use: Never Used Second Hand Smoke Exposure: No service: Yes Current occupational status: employed Current occupation: [employer] Current occupational exposures/hazards: No Cognitive needs: No Hearing needs: No Vision needs: No Review of Systems Const All systems reviewed & are unremarkable except as noted in HPI and below Reports no additional complaints Eyes Reports no additional complaints ENT Reports no additional complaints Card Reports no additional complaints Resp Reports no additional complaints GI Reports no additional complaints Reports as per HPI Musc Reports no additional complaints Skin/Breast Reports system reviewed and no additional complaints, except as documented Neuro Reports no additional complaints Psych Reports no additional complaints Endo Reports no additional complaints Edson/Lymph Reports no additional complaints Aller/Immun Reports no additional complaints Assessment & Plan Assessment & Plan (1) Low testosterone in male: Code(s): R79.89 - Other specified abnormal findings of blood chemistry Plan LH FSH, free and total testosterone and other markers Patient Instructions: The patient had an opportunity to ask questions regarding treatment plan. All questions were answered. No major barriers to understanding were identified. The patient expressed understanding and agreement with the above treatment plan. The patient is aware they should contact our office by phone for worsening of their current condition or the appearance of new symptoms. Compliance is encouraged with any medications and followup testing that is ordered. It is a privilege to be allowed the opportunity to participate in the urologic care of your patient. If you have any questions or concerns regarding treatment for the above conditions please do not hesitate to contact me. The office telephone contact is [phone]. This note is constructed in part using voice recognition software. While every effort has been made to ensure accuracy primary special educator errors may have been included. Yours sincerely, Quentin Samuel MD Coding Level of Care Code Est Pt Level 3 (73304) Diagnoses Low testosterone in male R79.89
== END 2023-08-20 09:06 | disposition home or self-care (01) ==
LOC: HO.HUSH 08:32
PROVIDERS: PCP Nurse Practitioner Family; Visit Provider Urology
DX: R79.89 Other specified abnormal findings of blood chemistry (principal)
CPT/HCPCS: 99213

== ENCOUNTER 2023-09-07 10:23 | Outpatient (REF) | payer OTHER, SELFPAY ==
[2023-09-13 09:48] LABS: Testosterone, Free 46.5 pg/mL (35.0-155.0); Testosterone, Total 228 ng/dL (250-1100)
== END 2023-09-07 10:24 | disposition home or self-care (01) ==
LOC: HO.HMGCLDS 10:23
PROVIDERS: PCP Nurse Practitioner Family; Visit Provider Urology
DX: Z13.9 Encounter for screening, unspecified (principal)
CPT/HCPCS: 36415; 84402; 84403

== ENCOUNTER 2023-10-08 12:54 | Outpatient (AMB) | payer OTHER, SELFPAY ==
--- NOTE | 2023-10-08 12:54 | A.OFFVIS_ITS ---
Intake Intake Visit Reasons: Testosterone Lab Result Intake Note: Patient presents today for a follow-up on Testosterone Labs Results: Meds- None Allergies to Antibiotic- No Known Allergies Blood Thinner- None Legal Nurse Consultant Required: No Accompanied by: Self / Same As Patient Allergies No Known Allergies Allergy (Verified 10/08/23 12:55) Medication List - Last Reconciled 10/08/23 by Quentin Samuel MD meloxicam 7.5 mg PO DAILY testosterone 2 pumps topical DAILY 30 days HPI HPI Comments History of Present Illness Details 10/08/2023--Julio presents for telehealth visit to review testosterone results. I have reviewed with the patient that repeat testosterone remains low. Blood work 09/07/2023--total testosterone 228 ng/dL. I will prescribe testosterone gel 2 pumps daily. Discussed repeat testosterone in 3 months. We will also check hematocrit and fasting glucose. Review of chart: 08/20/23 Julio is a 32-year-old male who p resents toady to the office for follow- up with concerns regarding low testosterone. He was evaluated for phimosis and balanitis, had circumcision done 03/10/23. He states that he has had fatigue a nd is concerned about having low testosterone. Discussed blood work for LH FSH, free and total testosterone and other markers 04/22/23: The patient underwent circumci angeles on 03/10/23 for recurrent balanitis and redundant foreskin. He states that the initial day of the recovery was rough, but eventually got better. He was concerned about the numbness on the left side of the glans. He did have an intercourse x 1. He had a normal erection and was able to ejaculate. I discussed with the patient that he is still in the healing process. I have indicated that the sensation may not be exactly the same as before the circumcision. He states that he understood, and he is instructed to call for any concerns. Reviewed surgical pathology-- 03/10/23 ? surgical pathology results reviewed: Foreskin, excision: Skin with features of lichen sclerosus, no evidence of dysplasia or malignancy. 03/05/2023? Julio is followed due to balanitis. He was last seen by me on 05/29/2022 for balanitis. Ketoconazole 2% was ordered at that time.? Circumcision discussed pending improvement in symptoms with antifungal cream. Patient states that the trouble with retracting the foreskin has been worsening at this time. He states that the antifungal creams did not help him. He denies any burning with urination. Consent form was obtained for circumcision procedure. 05/29/2022? Julio is a 32 year old male who is here for evaluation before phimosis.? He states that he is in a monogamous relationship.? He states that he has had trouble with retracting the foreskin which started 4 month ago after the of his son.? He denies irritative voiding symptoms.? He states he has pain with erections.? He states that his PCP gave him a cream to and he admits he has not been using the cream every day.? In review of his medication last he has been prescribed betamethasone cream.? On examination there is balanitis of the foreskin I a.m. able to retract the foreskin over the glans.? I have discussed that I would like to use a combination steroid and antifungal cream.? I have discussed that if the condition does not improve with the antifungal/steroid creams that circumcision may be considered. Plan:Ketoconazole 2%, fu in 3-4 wks; Circumcision discussed pending improvement in symptoms with antifungal cream. 10/08/2023: Plan: Repeat testosterone in 3 months, also hematocrit and glucose fasting levels Testosterone replacement gel prescribed. [facility] Medical History GERD (gastroesophageal reflux disease) Surgical History S/P lumbar microdiscectomy Hx of cholecystectomy Hx of circumcision History of surgery H/O wrist surgery Family History Father HTN (hypertension) Heart disease Mother No problems noted. Brother No problems noted. Brother No problems noted. Sister No problems noted. Maternal Grandmother No problems noted. Maternal Grandfather No problems noted. Paternal Grandfather No problems noted. Paternal Grandmother No problems noted. Social History Housing: House Alcohol intake: current Alcohol intake frequency: holidays/special occasions only Patient Tobacco Use Status: Never used Tobacco e-Cigarette/Vaping Use: Never Used Second Hand Smoke Exposure: No service: Yes Current occupational status: employed Current occupation: [employer] Current occupational exposures/hazards: No Cognitive needs: No Hearing needs: No Vision needs: No Review of Systems Const All systems reviewed & are unremarkable except as noted in HPI and below Reports no additional complaints Eyes Reports no additional complaints ENT Reports no additional complaints Card Reports no additional complaints Resp Reports no additional complaints GI Reports no additional complaints Reports as per HPI Musc Reports no additional complaints Skin/Breast Reports system reviewed and no additional complaints, except as documented Neuro Reports no additional complaints Psych Reports no additional complaints Endo Reports no additional complaints Edson/Lymph Reports no additional complaints Aller/Immun Reports no additional complaints Physical Exam Const General: healthy appearing, no acute distress and well developed Orientation/consciousness: patient oriented x3 HEENT Head: Yes normocephalic and Yes atraumatic Eyes Conjunctivae: conjunctivae normal Neck Neck: Yes normal visual inspection Resp Effort & Inspection: normal respiratory effort Skin General skin exam: no rashes or lesions noted Neuro General: patient oriented x3 Psych Appearance: grossly normal Affect: normal affect Assessment & Plan Assessment & Plan (1) Low testosterone in male: Code(s): R79.89 - Other specified abnormal findings of blood chemistry Plan Testosterone replacement gel, repeat labs in 3 months, testosterone, hematocrit, fasting glucose. Orders: Orders Hematocrit 10 Weeks R79.89 - Other specified abnormal findings of blood chemistry, Z79.890 - Hormone replacement therapy Medications: New testosterone 2 pumps topical DAILY 30 days 75 grams 2RF Patient Instructions: The patient had an opportunity to ask questions regarding treatment plan. All questions were answered. Laboratory studies reviewed in detail. No major barriers to understanding were identified. The patient expressed understanding and agreement with the above treatment plan. The patient is aware they should contact our office by phone for worsening of their current condition or the appearance of new symptoms. Compliance is encouraged with any medications and followup testing that is ordered. It is a privilege to be allowed the opportunity to participate in the urologic care of your patient. If you have any questions or concerns regarding treatment for the above conditions please do not hesitate to contact me. The office telephone contact is [phone]. This note is constructed in part using voice recognition software. While every effort has been made to ensure accuracy brass cleaner errors may have been included. Yours sincerely, Quentin Samuel MD Telehealth Telehealth Location of provider rendering services: practice address Location of patient: address on file Patient Identification confirmed using: Name, : Yes Telehealth method: video Patient verbally consented to treatment: Yes Patient verbally consented to billing insurance company: Yes Patient informed of any privacy concerns related to visit: Yes Minutes spent on Phone/Video with Pt.: 12 Coding Level of Care Code Tele New Pt Level 4 (31258) Diagnoses Low testosterone in male R79.89
== END 2023-10-08 14:30 | disposition home or self-care (01) ==
LOC: HO.HUSH 12:54
PROVIDERS: PCP Nurse Practitioner Family; Visit Provider Urology
DX: R79.89 Other specified abnormal findings of blood chemistry (principal)
CPT/HCPCS: 99214

== ENCOUNTER → 2023-10-08 12:54 | Outpatient (BNVA) | payer OTHER, SELFPAY | PROVIDERS: PCP Nurse Practitioner Family; Visit Provider Urology ==

== ENCOUNTER 2024-02-10 15:21 | Outpatient (AMB) | payer OTHER, SELFPAY ==
--- NOTE | 2024-02-10 15:31 | MHC.OFFWIV ---
Intake Vital Signs 02/10/24 15:32 Height 5 ft 6.5 in Weight 198 lb BMI 31.5 BP 118/82 Blood Pressure Location Lt radial Position Sitting Pulse 100 Pulse Source Pulse Oximeter Temp 98.3 F Temp Source Oral Pulse Oximetry (%) 98 Oxygen Delivery Method Room Air Intake Visit Reasons: stomach ache requesting doctor note Intake Note: pt here c/o stomach ache Patient Tobacco Use Status: Never used Tobacco Allergies No Known Allergies Allergy (Verified 02/10/24 15:32) Do you need a note to return to daycare/school/sports/work: Yes HPI HPI Comments History of Present Illness Details This is a 33-year-old male presenting requesting a work note. Patient states that yesterday he had pain in his abdomen during the morning followed by several episodes of diarrhea which has since resolved. Patient states that his symptoms started yesterday morning and resolved earlier this morning. Patient states he was able to go to the gym today and denies any current abdominal discomfort. Patient states his abdominal pain diarrhea was not accompanied by any fevers, chills, dysuria, nausea or vomiting. Patient took Tums and Pepto bismol for relief of his symptoms. [facility] Medical History GERD (gastroesophageal reflux disease) Surgical History S/P lumbar microdiscectomy Hx of cholecystectomy Hx of circumcision History of surgery H/O wrist surgery Family History Father HTN (hypertension) Heart disease Mother No problems noted. Brother No problems noted. Brother No problems noted. Sister No problems noted. Maternal Grandmother No problems noted. Maternal Grandfather No problems noted. Paternal Grandfather No problems noted. Paternal Grandmother No problems noted. Social History Housing: House Alcohol intake: current Alcohol intake frequency: holidays/special occasions only Patient Tobacco Use Status: Never used Tobacco e-Cigarette/Vaping Use: Never Used Second Hand Smoke Exposure: No service: Yes Current occupational status: employed Current occupation: [employer] Current occupational exposures/hazards: No Cognitive needs: No Hearing needs: No Vision needs: No Review of Systems Const All systems reviewed & are unremarkable except as noted in HPI and below Denies chills, Denies fatigue and Denies fever(s) Eyes Reports as per HPI ENT Reports no additional complaints Card Reports no additional complaints Resp Reports no additional complaints GI Reports as per HPI, Reports abdominal pain (resolved), Reports change in bowel habits, Reports diarrhea (resolved), Denies nausea and Denies vomiting Reports no additional complaints, Denies dysuria and Denies urinary frequency Musc Reports no additional complaints Skin/Breast Reports system reviewed and no additional complaints, except as documented Neuro Reports no additional complaints Psych Reports no additional complaints Endo Reports no additional complaints and Denies fatigue Aller/Immun Reports no additional complaints Physical Exam Vital Signs: Last Vital Signs Temp 98.3 F 02/10/24 15:32 Pulse 100 02/10/24 15:32 BP 118/82 02/10/24 15:32 Pulse Ox 98 02/10/24 15:32 Oxygen Delivery Method Room Air 02/10/24 15:32 BMI result Body Mass Index 31.5 Const General: cooperative, healthy appearing, comfortable, no acute distress, well developed, alert, awake and Physically active; No lethargic Nutritional Appearance: well nourished Orientation/consciousness: patient oriented x3 and No lethargic Limitations: no limitations HEENT Head: Yes normal to inspection Mouth: Normal oral and palatal mucosa present and moist mucous membranes Resp Effort & Inspection: normal respiratory effort and able to speak in complete sentences Auscultation: clear to auscultation bilaterally Cardio Rate: regular rate Rhythm: regular rhythm GI Palpation (GI): Soft to palpation, nontender, no guarding and not rigid Auscultation: normal bowel sounds Neuro General: patient oriented x3 Psych Appearance: grossly normal Mental Status: mental status grossly normal Insight: Good insight present (Psych) Judgement: Good judgement present (Psych) Assessment & Plan Assessment & Plan (1) Acute diarrhea: Comment: Patient states his symptoms have completely resolved. Patient is encouraged to stay well hydrated with water. Code(s): R19.7 - Diarrhea, unspecified Plan: Hydration with clear fluids; work note given to return to work tomorrow. Coding Level of Care Code Est Pt Level 3 (30499) Diagnoses Acute diarrhea R19.7 Time Spent (min) 20
[2024-02-10 15:32] VITALS: BP 118/82; PULSE 100; TEMP 36.8; O2SAT 98; BMI 31.5
== END 2024-02-10 16:13 | disposition home or self-care (01) ==
PROVIDERS: PCP Nurse Practitioner Family; Visit Provider Physician Assistant
DX: R19.7 Diarrhea, unspecified (principal)
CPT/HCPCS: 99213

== ENCOUNTER 2024-08-04 09:02 | Outpatient (AMB) | payer OTHER, SELFPAY ==
--- NOTE | 2024-08-04 09:03 | A.OFFPC_ITS ---
Vital Signs 08/04/24 09:04 Height 5 ft 6.5 in Weight 196 lb BMI 31.2 BP 120/80 Blood Pressure Location Rt brachial Position Sitting Pulse 82 Pulse Source Pulse Oximeter Temp 98.8 F Temp Source Oral Pulse Oximetry (%) 98 Oxygen Delivery Method Room Air Intake Visit Reasons: PE Intake Note: pt is here for PE Printed Circuit Board Assembler Required: No Accompanied by: Self / Same As Patient Allergies No Known Allergies Allergy (Verified 08/04/24 09:32) Medication List - Last Reconciled 08/04/24 by LORI Jimenez No Known Home Meds Tobacco use date assessed: 08/04/24 Dental Screening Dental Screen Date: 08/04/24 Did you have a dental visit in the last 12 months?: Yes Did you have a dental problem in the last 6 months where you did not have access to dental care?: No Was dental information given to patient?: Patient has dentist HPI PE HPI Details History of Present Illness The patient is a 34-year-old male presenting with an ongoing abscess near the kristian cleft, primarily located in the left upper buttocks region. The abscess, described as small, has been intermittently draining for several months (pus/blood). There is no pain reported by the patient, and the drainage pattern is described as on and off. antibiotics tried, lesion returns. The patient denies any associated symptoms such as erythema or signs of infection around the area. Additionally, there are no reports of systemic symptoms such as fever. The patient also denies having had any chest pain, shortness of breath, constipation, diarrhea, ongoing anxiety, depression, suicidal ideation, or homicidal ideation. Health Maintenance Social History Review of Systems - Cardiopulmonary: Denies chest pain, de nies shortness of breath - Gastrointestinal: Denies constipation, denies diarrhea - Psychological: Denies anxiety, denies depression, denies suicidal ideation, denies homicidal ideation Physical Exam General: Cooperative, healthy appearing, comfortable, no acute distress and well developed Orientation: Patient oriented x3 Limitations: No limitations Head: Normal to inspection Ears: Hearing grossly normal bilaterally Nose: Normal external nose present Face and sinus: Normal facial exam Eyes: Appearance normal, both eyes and all related structures Neck: Normal visual inspection and Yes full ROM Respiratory: Normal respiratory effort and able to speak in complete sentences. Clear to auscultation bilaterally Cardiovascular: Regular rate and rhythm. Normal S1 and S2 GI: Normal to inspection. Soft to palpation and nontender Skin: No rashes or lesions noted except for a small protruding abscess with a scab on the left upper gluteal fold near the kristian cleft, not actively draining, no surrounding erythema or signs of infection Neuro: Patient oriented x3 Extremities: Normal to inspection Results Plan - Refer the patient to a general surgeon for lancing and removal of the abscess. Patient was informed and verbally consented to the use of an ambient scribe for clinic note documentation during this visit. Discussion Notes I discussed with the patient the current status of the abscess located on the kristian cleft, emphasizing the need for referral to a general surgeon for potential lancing and removal. It was explained that while there were no signs of infection or erythema, addressing the abscess would help prevent potential complications. The patient was informed about the nature of the surgical procedure, including the risks and benefits. There was agreement on proceeding with the surgical referral plan. Patient Instructions - Follow up with a general surgeon for f urther assessment and management of the abscess. - Monitor the area for any signs of incr eased pain, redness, swelling, or fever and seek medical attention if these symptoms occur. - Maintain good hygiene in the affected area. [facility] Medical History GERD (gastroesophageal reflux disease) Surgical History S/P lumbar microdiscectomy Hx of cholecystectomy Hx of circumcision History of surgery H/O wrist surgery Family History Father HTN (hypertension) Heart disease Mother No problems noted. Brother No problems noted. Brother No problems noted. Sister No problems noted. Maternal Grandmother No problems noted. Maternal Grandfather No problems noted. Paternal Grandfather No problems noted. Paternal Grandmother No problems noted. Social History Housing: House Alcohol intake: current Alcohol intake frequency: holidays/special occasions only Patient Tobacco Use Status: Never used Tobacco e-Cigarette/Vaping Use: Never Used Second Hand Smoke Exposure: No service: Yes Current occupational status: employed Current occupation: [employer] Current occupational exposures/hazards: No Cognitive needs: No Hearing needs: No Vision needs: No Questionnaire PHQ-9 Over the last 2 weeks, how often have you been bothered by any of the following problems? 1. Little interest or pleasure in doing things: not at all 2. Feeling down, depressed, or hopeless: not at all 3. Trouble falling or staying asleep, or sleeping too much: not at all 4. Feeling tired or having little energy: several days 5. Poor appetite or overeating: not at all 6. Feeling bad about yourself - or that you are a failure or have let yourself or your family down: not at all 7. Trouble concentrating on things, such as reading the newspaper or watching television: not at all 8. Moving or speaking so slowly that other people could have noticed. Or the opposite - being so fidgety or restless that you have been moving around a lot more than usual: not at all 9. Thoughts that you would be better off or of hurting yourself in some way: not at all Total score: 1 Depression Screening Interpretation: Negative Depression Screening Done: Yes 26624 - PHQ-9 Billing: Yes Source: Developed by Drs. Schuyler Holbrook, Ana Maloney, Isaac Vigil and colleagues, with an educational neena from [employer]. Thrive Questionnaire Date Thrive assessed: 08/04/24 I am a: Patient What is your living situation today?: I have a steady place to live Within the past 12 months, did the food you bought not last and you didn't have the money to get more?: Never true Within the past 12 months, did you worry whether your food would run out before you got money to buy more?: Never true Do you have trouble paying for medicines?: No Do you have trouble getting transportation to medical appointments?: No Do you have trouble paying your heating and electricity bill?: No Do you have trouble taking care of your child, family member or friend?: No Do you have trouble with day-to-day activities such as bathing, preparing meals, shopping, managing finances, etc.?: No Are you currently unemployed and looking for a job?: No Are you interested in more education?: No Please select the resources that you would like help with: None Currently or been in a relationship where the following occur: No concerns reported THRIVE Score: 0 AUDIT C Alcohol Use Questionnaire (AUDIT-C) 1. How often do you have a drink containing alcohol?: Monthly or less 2. How many drinks containing alcohol do you have on a typical day when you are drinking?: 1 or 2 3. How often do you have six or more drinks on one occasion?: Never Total Score: 1 Score Reviewed/Action Taken: Yes FATOU-7 AMB Questionnaire FATOU-7 Date FATOU - 7 assessed: 08/04/24 Feeling nervous, anxious, or on edge: 3 = Nearly every day Not being able to stop or control worryin = Not at all Worrying too much about different things: 0 = Not at all Trouble relaxin = Not at all Being so restless that it is hard to sit still: 0 = Not at all Becoming easily annoyed or irritable: 0 = Not at all Feeling afraid as if something awful might happen: 0 = Not at all Total FATOU-7 score (0-4 normal; 5-9 mild; 10-14 moderate; 15-21 severe): 3 Source: Developed by Drs. Schuyler Holbrook, Ana Maloney, Isaac Vigil and colleagues, with an educational neena from [employer]. FATOU-7 Assessment Billing FATOU-7 Assessment Tool: FATOU-7 Assessment 06198 Physical exam (Primary Care) Vital Signs: Last Vital Signs Temp 98.8 F 08/04/24 09:04 Pulse 82 08/04/24 09:04 BP 120/80 08/04/24 09:04 Pulse Ox 98 08/04/24 09:04 Oxygen Delivery Method Room Air 08/04/24 09:04 BMI result Body Mass Index 31.2 Tobacco/Smoking Status: Tobacco use Status Tobacco use date assessed 08/04/24 08/04/24 09:05 Patient Tobacco Use Status Never used Tobacco 08/04/24 09:05 e-Cigarette/Vaping Use Never Used 08/04/24 09:05 PHQ-9: PHQ-9 Score PHQ-9: Total score 1 08/04/24 09:05 Depression Screening Interpretation: Negative Thrive Assessment: Date of Thrive Assessment Date Thrive assessed 08/04/24 08/04/24 09:05 Currently or been in a relationship where the following occur: No concerns reported Coding Level of Care Code Est Pt Prev Care 18-39y(27364) Diagnoses Physical exam Z00. Pilonidal cyst L Additional Codes FATOU-7 Assessment Billing - FATOU-7 Assessment Tool: FATOU-7 Assessment 34687 ([id number]) PHQ-9 - 16555 - PHQ-9 Billing: Yes ([id number]) Assessment & Plan Assessment & Plan (1) Physical exam: Code(s): Z00.00 - Encounter for general adult medical examination without abnormal findings Category: Medical (2) Pilonidal cyst: Code(s): L - Pilonidal cyst without abscess Category: Medical Plan . Orders: Orders Lipid Panel Today Z00.00 - Encounter for general adult medical examination without abnormal findings Complete Blood Count Auto Diff Today Z00.00 - Encounter for general adult medical examination without abnormal findings Comprehensive [place]. Panel Fast Today Z00.00 - Encounter for general adult medical examination without abnormal findings TSH reflex Free T4 Today Z00.00 - Encounter for general adult medical examination without abnormal findings UA CC w/rflx Micro + Cult Today Z00.00 - Encounter for general adult medical examination without abnormal findings Referrals General Surgery Referral L.91 - Pilonidal cyst without abscess
[2024-08-04 09:04] VITALS: BP 120/80; PULSE 82; TEMP 37.1; O2SAT 98; BMI 31.2
== END 2024-08-04 09:52 | disposition home or self-care (01) ==
LOC: HO.HMCC 09:02
PROVIDERS: PCP Nurse Practitioner Family; Visit Provider Nurse Practitioner Family
DX: Z00.00 Encounter for general adult medical examination without abnormal findings (principal); L05.91 Pilonidal cyst without abscess

== ENCOUNTER → 2024-08-04 09:02 | Outpatient (BNVA) | payer OTHER, SELFPAY | PROVIDERS: PCP Nurse Practitioner Family; Visit Provider Nurse Practitioner Family | DX: Z00.00 Encounter for general adult medical examination without abnormal findings (principal); L05.91 Pilonidal cyst without abscess | CPT/HCPCS: 96127 ==

== ENCOUNTER 2024-08-12 09:15 | Outpatient (REF) | payer OTHER, SELFPAY ==
--- OUTSIDE RECORDS SUMMARY | 2024-08-12 09:44 | XMS_ITS | Clinical Summary ---
Author Organization [facility] Address [address] [place] [address] Care Team Providers Care Split Leather Department Supervisor Name Role Phone Pcp, No Primary Care Provider Unavailabl e Allergies No known active allergies Medications Medication Sig Dispensed Refills Start Date End Date Status oxyCODONE (ROXICODONE) 5 MG immediate release tabletIndications:Histo ry of cholecystectomy Take 1 tablet (5 mg total) by mouth 4 times daily (every 6 hours) as needed for moderate pain or severe pain. Max Daily Amount: 20 mg 12 tablet 12/17/2021 Active Active Problems No known active problems Social History Tobacco Use Types Packs/Day Years Used Date Smoking Tobacco: Never Smokeless Tobacco: Current Alcohol Use Standard Drinks/Week Comments Yes 0 (1 standard drink = 0.6 oz pur e alcohol) 2x week Sex and Gender Information Value Date Recorded Sex Assigned at Not on file Gender Identity Not on file Sexual Orientation Not on file Last Filed Vital Signs Vital Sign Reading Time Taken Comments Blood Pressure 132/85 12/17/2021 11:45 AM EDT Pulse 88 12/17/2021 11:45 AM EDT Temperature 36.2 ??C (97.2 ??F) 12/17/2021 11:30 AM E DT Respiratory Rate 20 12/17/2021 11:45 AM EDT Oxygen Saturation 94% 12/17/2021 11:45 AM EDT Inhaled Oxygen Concentration - - Weight 95.3 kg (210 lb) 12/26/2021 9:51 AM EDT Height 167.6 cm (5' 6 ) 12/26/2021 9:51 AM EDT Body Mass Index 33.89 12/26/2021 9:51 AM EDT Plan of Treatment Health Maintenance Due Date Last Done Comments Hepatitis C Virus Screening 1990 HIV Screening 2003 DTaP/Tdap/Td Vaccines (1 - Tdap) 2009 Hepatitis B Vaccines (1 of 3 - 19+ 3-dose series) 2009 Influenza Vaccine 02/11/2024 COVID-19 Vaccine (1 - 2023-2 5 season) 2024 HPV Vaccines Aged Out No longer eligi ble based on patient's age to complete this topic Pneumococcal Vaccine: Pediat gabriela (0-5 Years) and At-Risk Patients (6 to 49 Years) Aged Out No longer eligible b ased on patient's age to complete this topic Advance Directives * Full Code (Latest Code Status on File) Date Activated Date Inactivated Comments 12/17/2021 7:53 AM Care Teams Split Leather Department Supervisor Relationship Specialty Start Date End Date Pcp, No PCP - General General Medicine 12/02/21
--- OUTSIDE RECORDS SUMMARY | 2024-08-12 09:44 | XMS_ITS | Encounter Summary ---
Author Organization [facility] Address [address] [place] [address] Care Team Providers Care Professor Of Languages Name Role Phone Pcp, No Primary Care Provider Unavailabl e Encounter Details Date Type Department Care Team (Late st Contact Info) Description 02/18/2022 Scanned Document [facility] General Surgery- [address] [place] [phone] Hiram Henderson MD [address] [place] [phone] Social History Tobacco Use Types Packs/Day Years Used Date Smoking Tobacco: Never Smokeless Tobacco: Current Alcohol Use Standard Drinks/Week Comments Yes 0 (1 standard drink = 0.6 oz pur e alcohol) 2x week Sex and Gender Information Value Date Recorded Sex Assigned at Not on file Gender Identity Not on file Sexual Orientation Not on file documented as of this encounter Plan of Treatment Not on file documented as of this encounter Visit Diagnoses Not on filedocumented in this encounter Care Teams Professor Of Languages Relationship Specialty Start Date End Date Pcp, No PCP - General General Medicine 12/02/21 documented as of this encounter
--- OUTSIDE RECORDS SUMMARY | 2024-08-12 09:44 | XMS_ITS | Encounter Summary ---
Author Organization [facility] Address [address] [place] [address] Care Team Providers Care Resource Economist Name Role Phone Pcp, No Primary Care Provider Unavailabl e Encounter Details Date Type Department Care Team (Latest Contact Info) Description 06/05/2020 Lab Requisition [facility] COVID Drive Through [address] [place] [address] [address] [place] [address] Cristi Holcomb PA-C [address] [place] [address] [phone] Encounter for laboratory testing for COVID-19 virus Social History Tobacco Use Types Packs/Day Years Used Date Smoking Tobacco: Never Assessed Sex and Gender Information Value Date Recorded Sex Assigned at Not on file Gender Identity Not on file Sexual Orientation Not on file documented as of this encounter Plan of Treatment Not on file documented as of this encounter Procedures Procedure Name Priority Date/Time Associated Diagnosis Comments SARS COV-2 RNA (COVID-19), QUAL Routine 06/05/2020 6:46 PM EST Encounter for laboratory testing for COVID-19 virus [ICD-10-CM] documented in this encounter Results * SARS CoV-2 RNA (COVID-19), Qual (06/05/2020 6:46 PM EST) Pathologist [facility] SARS CoV 2 RNA, Qual NOT DETECTED NOT DETECTED 06/09/2020 5:00 PM EST [facility] Comment: A Not Detected (negative) test result for this test means that SARS-CoV-2 RNA was not present in the specimen above the limit of detection. A negative result does not rule out the possibility of COVID-19 and should not be used as the sole basis for treatment or patient management decisions. If COVID-19 is still suspected, based on exposure history together with other clinical findings, re-testing should be considered in consultation with public health authorities. Laboratory test results should always be considered in the context of clinical observations and epidemiological data in making a final diagnosis and patient management decisions. REFERENCE RANGE: ??NOT DETECTED This patient specimen was tested using an FDA EUA pooling method. Negative results from pooled testing should not be treated as definitive. ??If the patient's clinical signs and symptoms are inconsistent with a negative result or results are necessary for patient management, then the patient should be considered for individual testing. Specimens with low viral loads may not be detected in sample pools due to the decreased sensitivity of pooled testing. Please review the Fact Sheets and FDA authorized labeling available for health care providers and patients using the following websites: https://www.[employer]/home/Covid-19/HCP/QuestLDTP/ fact-sheet https://www.[employer]/home/Covid-19/Patients/QuestLDTP/ fact-sheet.html This test has been authorized by the FDA under an Emergency Use Authorization (EUA) for use by authorized laboratories. Due to the current public health emergency, [employer] is receiving a high volume of samples from a wide variety of swabs and media for COVID-19 testing. In order to serve patients during this public health crisis, samples from appropriate clinical sources are being tested. Negative test results derived from specimens received in non-commercially manufactured viral collection and transport media, or in media and sample collection kits not yet authorized by FDA for COVID-19 testing should be cautiously evaluated and the patient potentially subjected to extra precautions such as additional clinical monitoring, including collection of an additional specimen. Methodology: ??Nucleic Acid Amplification Test (NAAT) includes RT-PCR or TMA ?? Additional information about COVID-19 can be found at the [employer] website: www.[employer]thing.[place]/Covid19. Microbiology Nasopharyngeal swab / Unknown 06/05/2020 6:46 PM EST 06/05/2020 6:46 PM EST [facility] - 06/09/2020 5:00 PM EST Performing Organization Information: ?Site ID: [id number] ?Name: [facility] ?Address: [address] [place] [address] [address] [address] ?Director: BARBARA YEN MD [facility] License number [id number] Cristi Holcomb PA-C MICROBIOLOGY - NERAL ORDERABLES Performing Organization Address City/State/[facility] Co de Phone Number [facility] documented in this encounter Visit Diagnoses Diagnosis Encounter for laboratory testing for COVID-19 virus documented in this encounter Care Teams Resource Economist Relationship Specialty Start Date End Date Pcp, No PCP - General General Medicine 12/02/21 documented as of this encounter
[2024-08-12 10:43] LABS: MANUAL DIFF FLAG NO
[2024-08-12 10:49] LABS: White Blood Count 5.5 X10*3/uL (4.8-10.8)
[2024-08-12 10:50] LABS: Basophils Percent Auto 0.7 % (0-2); Eosinophils Absolute Auto 0.1 X10*3/uL (0.0-0.4); Eosinophils Percent Auto 1.1 % (0-4); Hematocrit 46.7 % (42.0-52.0); Hemoglobin 15.5 g/dl (14.0-18.0); Imm Gran Abs Auto 0.01 X10*3/uL (0.00-0.03); Imm Gran Pct Auto 0.2 % (0.0-0.4); Lymphocytes Absolute Auto 1.5 X10*3/uL (1.2-4.9); Lymphocytes Percent Auto 26.7 % (20-40); Mean Corpuscular HGB Conc 33.2 g/dl (31.0-36.0); Mean Corpuscular Hemoglobin 27.9 pg (27.0-33.0); Mean Corpuscular Volume 84.1 fL (80.0-98.0); Mean Platelet Volume 10.4 fL (9.4-12.4); Monocytes Absolute Auto 0.3 X10*3/uL (0.1-1.2); Neutrophils Absolute Auto 3.6 x10*3/uL (2.0-8.3); Neutrophils Percent Auto 65.3 % (45-73); Platelet Count 252 X10*3/uL (160-400); Red Blood Count 5.55 X10*6/uL (4.60-5.80); Red Cell Distribution Width 12.2 % (11.0-16.0)
[2024-08-12 10:52] LABS: Appearance Urine Clear; Color Urine Yellow; Glucose Urine UA Negative (Negative); Leukocyte Esterase Urine Small (1+) (Negative); Nitrite Urine Negative (Negative); Specific Gravity - Urine 1.025 (1.005-1.025); UMIC TRIGGER UACC YES; Urine Blood Negative (Negative); Urine Ketones Negative (Negative); Urine Protein Negative (Neg-Trace)
[2024-08-12 11:02] LABS: Bacteria Urine None Seen (None Seen); Hyaline Casts Urine 0-2 /LPF (0-2); RBC Urine 0-2 /HPF (0-2); Squamous Epithelial Cell Urine 0-2 /HPF (0-2); UACC Culture Trigger YES
[2024-08-12 12:26] LABS: Alanine Aminotransferase 41 U/L (0-40); Albumin Level 4.2 g/dL (3.5-5.0); Alkaline Phosphatase 59 U/L (39-117); Anion Gap 11 (12-20); Aspartate Amino Transferase 34 U/L (5-37); Blood Urea Nitrogen 19 mg/dL (9-16); Calcium 9.6 mg/dL (8.4-10.2); Carbon Dioxide 25 mmol/L (22-29); Chloride 110 mmol/L (96-108); Cholesterol 135 mg/dL (<200); Estimated Glomerular Filt Rate > 60; Glucose Fasting 73 mg/dL (60-99); HDL Cholesterol 24 mg/dL (>40); LDL Cholesterol Calculated 95 mg/dL (<100); Potassium 4.1 mmol/L (3.3-5.1); Sodium 142 mmol/L (135-145); Total Protein 8.2 g/dL (6.5-8.0); Triglycerides 81 mg/dL (<150)
== END 2024-08-12 09:16 | disposition home or self-care (01) ==
LOC: HO.HMGCLDS 09:15
PROVIDERS: PCP Nurse Practitioner Family; Visit Provider Nurse Practitioner Family
DX: Z00.00 Encounter for general adult medical examination without abnormal findings (principal); Z13.6 Encounter for screening for cardiovascular disorders
CPT/HCPCS: 36415; 80053; 80061; 81001; 84443; 85025; 87086

== ENCOUNTER 2024-08-16 13:48 | Outpatient (AMB) | payer OTHER, SELFPAY ==
--- NOTE | 2024-08-16 13:50 | MHC.OFFVIS ---
Vital Signs 08/16/24 13:56 Height 5 ft 6.5 in Weight 187 lb BMI 29.7 BP 144/67 H Blood Pressure Location Rt brachial Position Sitting Pulse 104 H Intake Visit Reasons: Pilonidal cyst Intake Note: Patient referred by pcp Kanu MENDIETAP for pilonidal cyst. Present for 6m. Patient c/o: drainage that improves w/ abx. Script Supervisor Required: No Accompanied by: Self / Same As Patient Allergies No Known Allergies Allergy (Verified 08/16/24 13:57) HPI Comments Details: Patient was had a several month history of symptomatic pilonidal cyst of the kristian cleft. He undergoes bouts of fullness swelling and discharge. Because of persistence of symptoms, he presents here for further evaluation would like to know if this can be remedied. Patient is quite active and a and does a lot of exercises including sit-ups. Chart was reviewed and patient evaluated [facility] Medical History GERD (gastroesophageal reflux disease) Surgical History S/P lumbar microdiscectomy Hx of cholecystectomy Hx of circumcision History of surgery H/O wrist surgery Family History Father HTN (hypertension) Heart disease Mother No problems noted. Brother No problems noted. Brother No problems noted. Sister No problems noted. Maternal Grandmother No problems noted. Maternal Grandfather No problems noted. Paternal Grandfather No problems noted. Paternal Grandmother No problems noted. Social History Housing: House Alcohol intake: current Alcohol intake frequency: holidays/special occasions only Patient Tobacco Use Status: Never used Tobacco e-Cigarette/Vaping Use: Never Used Second Hand Smoke Exposure: No service: Yes Current occupational status: employed Current occupation: [employer] Current occupational exposures/hazards: No Cognitive needs: No Hearing needs: No Vision needs: No Physical Exam Vital Signs: Last Vital Signs Pulse 104 H 08/16/24 13:56 BP 144/67 H 08/16/24 13:56 BMI result Body Mass Index 29.7 Const Other: Very well-developed male Chest Other: Chest breath sounds bilaterally, HS 1 in 2 GI Other: Abdomen is soft, benign Back/Spine/Pelvis Other: Patient 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 He has several sinuses and a draining area left of midline from the festering inflammatory process. No active purulence or cellulitis or abscess at this time Assessment & Plan Assessment & Plan (1) Pilonidal cyst of kristian cleft: Code(s): L05.91 - Pilonidal cyst without abscess Category: Surgical Plan Risks, benefits, and alternatives of excision of pilonidal cyst of the kristian cleft were reviewed with the patient and included but not limited to bleeding, infection, recurrence, numbness, pain, scarring, wound dehiscence, seroma formation and the patient wishes to proceed. Is also explained to him that he needs to be relatively sedentary 4-6 weeks postoperatively. All questions answered. Arrangements will be made for this on a day which is convenient for him. Coding Level of Care Code New Pt Level 5 (93647) Diagnoses Pilonidal cyst of kristian cleft L05.91
[2024-08-16 13:56] VITALS: BP 144/67; PULSE 104; BMI 29.7
--- OUTSIDE RECORDS SUMMARY | 2024-08-16 13:56 | XMS_ITS | Encounter Summary ---
Author Organization [facility] Address [address] [place] [address] Care Team Providers Care Mobile Pet Groomer Name Role Phone Pcp, No Primary Care Provider Unavailabl e Encounter Details Date Type Department Care Team (Late st Contact Info) Description 02/18/2022 Scanned Document [facility] General Surgery- [address] [place] [phone] Hiram Henderson MD [address] [place] [phone] Social History Tobacco Use Types Packs/Day [...] on filedocumented in this encounter Care Teams Mobile Pet Groomer Relationship Specialty Start Date End Date Pcp, No PCP - General General Medicine 12/02/21 documented as of this encounter
--- OUTSIDE RECORDS SUMMARY | 2024-08-16 13:56 | XMS_ITS | Encounter Summary ---
Author Organization [facility] Address [address] [place] [id number] Care Team Providers Care Senior Bi Architect Name Role Phone Pcp, No Primary Care Provider Unavailabl e Encounter Details Date Type Department Care Team (Latest Contact Info) Description 06/05/2020 Lab Requisition [facility] COVID Drive Through [address] [place] [address] [address] [place] [address] Cristi Holcomb PA-C [address] [place] [address] [phone] Encounter for laboratory testing for COVID-19 virus [...] (COVID-19), Qual (06/05/2020 6:46 PM EST) Pathologist [facility] SARS CoV 2 RNA, Qual NOT DETECTED NOT DETECTED 06/09/2020 5:00 PM EST [facility] Comment: A Not Detected (negative) test result [...] providers and patients using the following websites: https://www.[employer].SubtleData/home/Covid-19/HCP/QuestLDTP/ fact-sheet https://www.[employer].SubtleData/home/Covid-19/Patients/QuestLDTP/ fact-sheet.html This test has been authorized by the FDA under an Emergency Use Authorization (EUA) for use by authorized laboratories. Due to the current public health emergency, [facility] is receiving a high volume of samples [...] about COVID-19 can be found at the [facility] website: www.[employer].SubtleData/Covid19. Microbiology Nasopharyngeal swab / Unknown 06/05/2020 6:46 PM EST 06/05/2020 6:46 PM EST [facility] - 06/09/2020 5:00 PM EST Performing Organization Information: ?Site ID: [id number] ?Name: [facility] ?Address: [address] [place] [address] [address] [address] ?Director: BARBARA YEN MD [facility] at [facility] License number [id number] Cristi Holcomb PA-C MICROBIOLOGY - NERAL ORDERABLES Performing Organization Address City/State/[facility] Co de Phone Number [facility] documented in this encounter Visit Diagnoses Diagnosis Encounter for laboratory testing for COVID-19 virus documented in this encounter Care Teams Senior Bi Architect Relationship Specialty Start Date End Date Pcp, No PCP - General General Medicine 12/02/21 documented as of this encounter
--- OUTSIDE RECORDS SUMMARY | 2024-08-16 13:56 | XMS_ITS | Clinical Summary ---
Author Organization [facility] Address [address] [place] [address] Care Team Providers Care Stage Setting Painter Apprentice Name Role Phone Pcp, No Primary Care [...] Inactivated Comments 12/17/2021 7:53 AM Care Teams Stage Setting Painter Apprentice Relationship Specialty Start Date End Date Pcp, No PCP - General General Medicine 12/02/21
== END 2024-08-16 14:03 | disposition home or self-care (01) ==
PROVIDERS: PCP Nurse Practitioner Family; Referring Provider Nurse Practitioner Family; Visit Provider Surgery
DX: L05.91 Pilonidal cyst without abscess (principal)
CPT/HCPCS: 99204

== ENCOUNTER → 2024-08-16 13:48 | Outpatient (BNVA) | payer OTHER, SELFPAY | PROVIDERS: PCP Nurse Practitioner Family; Referring Provider Nurse Practitioner Family; Visit Provider Surgery | DX: L05.91 Pilonidal cyst without abscess (principal) | CPT/HCPCS: 99202 ==

== ENCOUNTER 2024-09-07 08:27 | Outpatient (AMB) | payer OTHER, SELFPAY ==
--- NOTE | 2024-09-07 08:29 | MHC.OFFVIS ---
Intake Visit Reasons: Cyst in Groin Area Intake Note: Patient is present for CYST IN GROIN AREA Urology Medication:NONE Antibiotic Allergy:NONE Blood Thinner:NONE College Scouting Coordinator Required: No Allergies No Known Allergies Allergy (Verified 09/07/24 08:31) HPI Comments Details: Julio is a pleasant male. He is a patient of Dr. Constantino. 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 Majority of discussion was regarding external testosterone administration Has been on injectable testosterone intermittently for past 10 years Currently taking 500 mg per week Discussed super physiologic nature of this dosage Discussed potential side effects from medications including disturbance to liver transaminase, hematocrit increase with phlebotomy requirements, and some degree of estrogen shunting Will obtain baseline testosterone labs whilst on therapy for documentation PFSH Medical History GERD (gastroesophageal reflux disease) Surgical History S/P lumbar microdiscectomy Hx of cholecystectomy Hx of circumcision History of surgery H/O wrist surgery Family History Father HTN (hypertension) Heart disease Mother No problems noted. Brother No problems noted. Brother No problems noted. Sister No problems noted. Maternal Grandmother No problems noted. Maternal Grandfather No problems noted. Paternal Grandfather No problems noted. Paternal Grandmother No problems noted. Social History Housing: House Alcohol intake: current Alcohol intake frequency: holidays/special occasions only Patient Tobacco Use Status: Never used Tobacco e-Cigarette/Vaping Use: Never Used Second Hand Smoke Exposure: No service: Yes Current occupational status: employed Current occupation: [employer] Current occupational exposures/hazards: No Cognitive needs: No Hearing needs: No Vision needs: No Review of Systems Const Denies chills and Denies fever(s) Card Reports no additional complaints and Denies syncope Resp Denies cough GI Denies abdominal pain and Denies heartburn Reports as per HPI and Denies change in libido Neuro Denies syncope Psych Denies change in libido Endo Denies change in libido Physical Exam Const General: cooperative, healthy appearing, comfortable and no acute distress Orientation/consciousness: patient oriented x3 HEENT Face and sinus: Yes normal facial exam Mouth: moist mucous membranes Neck Neck: Yes normal visual inspection, Yes full ROM and Yes trachea midline Chest Chest palpation & inspection: normal inspection of the chest Resp Effort & Inspection: normal respiratory effort, able to speak in complete sentences and no respiratory distress GI Inspection: Yes normal to inspection Back/Spine/Pelvis Cervical Spine: normal cervical lordosis Thoracic/Lumbar Spine: thoracic and lumbar spine normal to inspection Skin General skin exam: no rashes or lesions noted Neuro General: patient oriented x3, gait normal, tone normal and moves all extremities Extrem General: Yes normal to inspection and Yes capillary refill normal Assessment & Plan Assessment & Plan (1) Low testosterone in male: Code(s): R79.89 - Other specified abnormal findings of blood chemistry Category: Medical (2) Balanitis: Code(s): N48.1 - Balanitis Category: Medical Plan Check baseline labs Orders: Orders Testosterone, Total Today C61 - Malignant neoplasm of prostate, Z79.890 - Hormone replacement therapy Lutenizing Hormone Today E11.69 - Type 2 diabetes mellitus with other specified complication, N52.1 - Erectile dysfunction due to diseases classified elsewhere, Z79.890 - Hormone replacement therapy Estradiol Ultra Sensitive Today E29.1 - Testicular hypofunction, Z79.890 - Hormone replacement therapy Patient Instructions: This note is constructed using voice recognition software. While every effort has been made to ensure accuracy physical biochemist errors may have been included. Imaging studies, laboratory and physical exam results were discussed and reviewed in detail. No major barriers to patient understanding were identified. An opportunity to ask questions regarding the treatment plan was provided. All questions were answered. The patient expressed understanding and agreement with the above treatment plan. The patient is aware they should contact our office by phone for worsening of their current condition or the appearance of new urologic symptoms. Compliance is encouraged with any medications and followup testing that is ordered. It is a privilege to participate in the urologic care of your patient. If you have any questions or concerns regarding treatment for the above conditions, or other urologic issues, please do not hesitate to contact me. The office telephone contact is [phone]. Sincerely, Dr Todd Todd MD, [facility] - Urology Compassionate Specialist Care for the Genitourinary System Coding Level of Care Code Est Pt Level 3 (05198) Diagnoses Low testosterone in male R79.89 Balanitis N48.1
--- OUTSIDE RECORDS SUMMARY | 2024-09-07 08:57 | XMS_ITS | Encounter Summary ---
Author Organization [facility] Address [address] [place] [address] Care Team Providers Care Mud Temperer Name Role Phone Pcp, No Primary Care Provider Unavailabl e Encounter Details Date Type Department Care Team (Latest Contact Info) Description 06/05/2020 Lab Requisition [facility] COVID Drive Through [address] [place] [address] [address] [place] [address] Cristi Holcomb PA-C [address] [place] [address] [phone] Encounter for laboratory testing for COVID-19 virus [...] Procedure Name Priority Date/Time Associated Diagnosis Comments (REPORT) SARS COV-2 RNA (COVID-19), QUAL Routine 06/05/2020 6:46 PM EST Encounter for laboratory testing for COVID-19 virus [ICD-10-CM] documented in this encounter Results * SARS CoV-2 RNA (COVID-19), Qual (06/05/2020 6:46 PM EST) Pathologist [facility] SARS CoV 2 RNA, Qual NOT DETECTED NOT DETECTED 06/09/2020 5:00 PM EST [facility] Comment: A Not Detected (negative) [...] providers and patients using the following websites: https://www.[employer].ChannelAdvisor/home/Covid-19/HCP/QuestLDTP/ fact-sheet https://www.[employer].ChannelAdvisor/home/Covid-19/Patients/QuestLDTP/ fact-sheet.html This test has been authorized by the FDA under an Emergency Use Authorization (EUA) for use by authorized laboratories. Due to the current public health emergency, [facility] is receiving a high volume of samples [...] about COVID-19 can be found at the [facility] website: www.[employer].ChannelAdvisor/Covid19. Microbiology Nasopharyngeal swab / Unknown 06/05/2020 6:46 PM EST 06/05/2020 6:46 PM EST [facility] - 06/09/2020 5:00 PM EST Performing Organization Information: ?Site ID: [id number] ?Name: [facility] ?Address: [address] [place] [address] [address] [address] ?Director: BARBARA YEN MD Performed at [facility] License number [id number] Cristi Holcomb PA-C BODY FLUIDS AND S TOOLS ORDERABLES Performing Organization Address City/State/[facility] Co de Phone Number [facility] documented in this encounter Visit Diagnoses Diagnosis Encounter for laboratory testing for COVID-19 virus documented in this encounter Care Teams Mud Temperer Relationship Specialty Start Date End Date Pcp, No PCP - General General Medicine 12/02/21 documented as of this encounter
--- OUTSIDE RECORDS SUMMARY | 2024-09-07 08:58 | XMS_ITS | Encounter Summary ---
Author Organization [facility] Address [address] [place] [address] Care Team Providers Care Shipping And Receiving Associate Name Role Phone Pcp, No Primary Care Provider Unavailabl e Encounter Details Date Type Department Care Team (Late st Contact Info) Description 02/18/2022 Scanned Document [facility] General Surgery- [address] [place] [phone] Hiram Henderson MD [address] [place] [address] Social History Tobacco Use Types Packs/Day [...] on filedocumented in this encounter Care Teams Shipping And Receiving Associate Relationship Specialty Start Date End Date Pcp, No PCP - General General Medicine 12/02/21 documented as of this encounter
--- OUTSIDE RECORDS SUMMARY | 2024-09-07 08:58 | XMS_ITS | Clinical Summary ---
Author Organization [facility] Address [address] [place] [address] Care Team Providers Care Filling Machine Tender Name Role Phone Pcp, No Primary Care [...] Inactivated Comments 12/17/2021 7:53 AM Care Teams Filling Machine Tender Relationship Specialty Start Date End Date Pcp, No PCP - General General Medicine 12/02/21
== END 2024-09-07 09:07 | disposition home or self-care (01) ==
PROVIDERS: PCP Nurse Practitioner Family; Visit Provider Urology
DX: R79.89 Other specified abnormal findings of blood chemistry (principal); N48.1 Balanitis
CPT/HCPCS: 99213

== ENCOUNTER → 2024-09-07 08:27 | Outpatient (BNVA) | payer OTHER, SELFPAY | PROVIDERS: PCP Nurse Practitioner Family; Visit Provider Urology | DX: E29.1 Testicular hypofunction (principal); N48.1 Balanitis | CPT/HCPCS: 99212 ==

== ENCOUNTER 2024-09-15 07:32 | Day surgery (SDC) | payer OTHER, SELFPAY ==
[2024-09-13 10:32] VITALS: BMI 29.7
--- NOTE | 2024-09-14 09:43 | MHC.SHP ---
Pre-Procedural Eval Section A - 24 Hr Update-Section A only Date of Service: 09/15/24 The patient is an INPATIENT: No Changes since office visit: No Cold of Flu in the past 2 weeks, No New Medical Problems, No Changes in Medication and No Patient answered all questions Section B - Complete if H&P > 30 days Chief Complaint: Pilonidal cyst without abscess Allergies: Allergies Allergy/AdvReac Type Severity Reaction Status Date / Time No Known Allergies Allergy Verified 09/07/24 08:31 Review of Systems Sugical H&P ROS: Negative: Constitution, Cardiovascular, Respiratory, Neurological, Psychiatric, Hem-Onc, Allergic/Immunologic, Gastrointestinal, Genitourinary, Musculoskeletal, Integumentary, Endocrine and Eyes/Ears/Nose/Throat Exam Surgical H&P Exam: Normal: HEENT, Normal: Heart, Normal: Lungs, Normal: Extremities, Normal: Abdomen, Normal: Skin and Normal: Neurological Plan I have reviewed the history and physical and performed a pertinent physical examination on my patient. No changes have occurred unless specified. Time Spent With Patient Time: Total time managing care of this patient today ____ minutes.
--- NOTE | 2024-09-14 11:42 | HO.ANESPROP2 ---
HPI - Anesthesia Eval Consult details Narrative: 34yo M for Wide Local Excision Pilonidal Cyst of Cleft PMFSH Active Problems Active Problems: All Active Problems Pilonidal cyst of kristian cleft (Acute) Elevated liver enzymes (Acute) Pilonidal cyst (Acute) Acute diarrhea (Acute) Long-term current use of testosterone replacement therapy (Acute) Low testosterone in male (Acute) Status post routine circumcision (Acute) Chronic lower back pain (Acute) Physical exam (Acute) Balanitis (Acute) Insomnia (Acute) Tinnitus (Acute) Phimosis (Acute) Eyelid cyst (Acute) S/P cholecystectomy (Acute) GERD (gastroesophageal reflux disease) (Acute) Impacted cerumen of left ear (Acute) Physical exam (Acute) Palpable lymph node (Acute) Cervical adenopathy (Acute) Abscess (Acute) Past Medical History Medical History GERD (gastroesophageal reflux disease) Family History Family History Father HTN (hypertension) Heart disease Mother No problems noted. Brother No problems noted. Brother No problems noted. Sister No problems noted. Maternal Grandmother No problems noted. Maternal Grandfather No problems noted. Paternal Grandfather No problems noted. Paternal Grandmother No problems noted. Family history of problems with anesthesia: No Surgical History Surgical History S/P lumbar microdiscectomy Hx of cholecystectomy Hx of circumcision History of surgery H/O wrist surgery History of Problems with Anesthesia: No Social History Social History Housing: House Alcohol intake: current Alcohol intake frequency: holidays/special occasions only Patient Tobacco Use Status: Never used Tobacco e-Cigarette/Vaping Use: Never Used Second Hand Smoke Exposure: No service: Yes Current occupational status: employed Current occupation: [employer] Current occupational exposures/hazards: No Cognitive needs: No Hearing needs: No Vision needs: No Meds Allergies Allergy/AdvReac Type Severity Reaction Status Date / Time No Known Allergies Allergy Verified 09/07/24 08:31 Home Medications ?Medication ?Instructions ?Recorded ?Confirmed ?Last Taken ?Type No Known Home Meds 01/23/25 02/05/25 Unknown History Exam Height,Weight and Vital Signs: Height 5 ft 6.5 in Weight 84.822 kg Assessment and Plan Assessment Anesthesia Assessment: Chart Reviewed Final Anesthetic Review Family History of Problems with Anesthesia: No History of Problems with Anesthesia: No
[2024-09-15] MEDS: Lactated Ringers 1,000 ML 100 ML IVCONT (08:00)
--- NOTE | 2024-09-15 08:07 | P.CONAN_ITS ---
[facility] Active Problems Active Problems: All Active Problems Pilonidal cyst of cleft (Acute) Elevated liver enzymes (Acute) Pilonidal cyst (Acute) Acute diarrhea (Acute) Long-term current use of testosterone replacement therapy (Acute) Low testosterone in male (Acute) Status post routine circumcision (Acute) Chronic lower back pain (Acute) Physical exam (Acute) Balanitis (Acute) Insomnia (Acute) Tinnitus (Acute) Phimosis (Acute) Eyelid cyst (Acute) S/P cholecystectomy (Acute) GERD (gastroesophageal reflux disease) (Acute) Impacted cerumen of left ear (Acute) Physical exam (Acute) Palpable lymph node (Acute) Cervical adenopathy (Acute) Abscess (Acute) Past Medical History Medical History GERD (gastroesophageal reflux disease) Functional capacity: independent ambulation Family History Family History Father HTN (hypertension) Heart disease Mother No problems noted. Brother No problems noted. Brother No problems noted. Sister No problems noted. Maternal Grandmother No problems noted. Maternal Grandfather No problems noted. Paternal Grandfather No problems noted. Paternal Grandmother No problems noted. Family history of problems with anesthesia: No Surgical History Surgical History S/P lumbar microdiscectomy Hx of cholecystectomy Hx of circumcision History of surgery H/O wrist surgery History of Problems with Anesthesia: No Social History Social History Housing: House Alcohol intake: current Alcohol intake frequency: holidays/special occasions only Patient Tobacco Use Status: Never used Tobacco e-Cigarette/Vaping Use: Never Used Second Hand Smoke Exposure: No Advance Directives: No Advance Directives Information Provided: Yes service: Yes Current occupational status: employed Current occupation: [employer] Current occupational exposures/hazards: No Cognitive needs: No Hearing needs: No Vision needs: No Meds Allergies Allergy/AdvReac Type Severity Reaction Status Date / Time No Known Allergies Allergy Verified 09/07/24 08:31 Active Medications: Current Medications Lactated Ringer's (Lr) 1,000 mls @ 100 mls/hr IVCONT .Q10H EMILY Home Medications ?Medication ?Instructions ?Recorded ?Confirmed ?Last Taken ?Type No Known Home Meds 08/04/24 09/15/24 Unknown History Exam Height,Weight and Vital Signs: Height 5 ft 6.5 in Weight 84.822 kg Airway Mallampati Class: III TM Dist: >3cm Neck ROM: Full Heart: RRR Lungs: CTA Assessment and Plan Assessment Anesthesia Assessment: Anesthesia Plan Discussed and Chart Reviewed Final Anesthetic Review Family History of Problems with Anesthesia: No History of Problems with Anesthesia: No NPO: Yes ASA Class: II Final Preanesthetic Review: Meds/Allgs Chart Reviewed, Consent Obtained/Reviewed and Anes Risks/Benef Reviewed Patient Risk: Low Procedure Risk: Low Anesthetic Plan Anesthetic Plan: GA Disposition: Standard PACU
[2024-09-15 08:29] VITALS: BP 116/56; PULSE 77; RESP 16; TEMP 37; O2SAT 96; BMI 29.7
--- NOTE | 2024-09-15 09:58 | W.PM.OPN ---
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 Bilateral buttocks were taped to spread the area and the cleft area was prepped and draped in usual sterile fashion. Using 0.5% Marcaine/1% lidocaine at the beginning at the end of the case, for preemptive analgesia and postoperative analgesia, then followed by a longitudinal by elliptical incision encompassing all diseased area, this carried down through skin, subcutaneous tissue and just to the left of midline. Specimen was then bovied and sent to pathology for specimen taken. Wound was irrigated, secured hemostasis, and closed in the following manner; subcutaneous tissue to wound base to contralateral subcutaneous tissue interrupted 0 Vicryl sutures were initially placed. Interrupted inverted dermal 2-0 and 3-0 Vicryl sutures then placed. Skin was closed using interrupted 2-0 Prolene sutures. Sponge, needle, and instrument counts reported correct. Patient tolerated the procedure well and emerged from anesthesia stable condition. EBL minimal
[2024-09-15 10:00] VITALS: BP 120/47; PULSE 86; RESP 16; TEMP 36.1; O2SAT 95
[2024-09-15 10:05] VITALS: BP 140/41; PULSE 87; RESP 16; O2SAT 95
[2024-09-15 10:10] VITALS: BP 133/43; PULSE 85; RESP 16; O2SAT 96
[2024-09-15 10:15] VITALS: BP 140/50; PULSE 86; RESP 16; O2SAT 98
[2024-09-15 10:30] VITALS: BP 108/39; PULSE 88; RESP 16; TEMP 36.6; O2SAT 98
--- NOTE | 2024-09-15 12:36 | HO.POSTANES ---
Post Anesthesia Evaluation Post Anesthesia Evaluation Date of Service: 09/15/24 Vital Signs: Vital Signs Temp Pulse Resp BP Pulse Ox O2 Del Method 09/15/24 10:30 98 F 88 16 108/39 L 98 Room Air 09/15/24 10:15 86 16 140/50 H 98 09/15/24 10:10 85 16 133/43 L 96 Room Air 09/15/24 10:05 87 16 140/41 H 95 Room Air 09/15/24 10:00 97 F 86 16 120/47 L 95 Room Air 09/15/24 08:29 98.6 F 77 16 116/56 L 96 Room Air Anesthesia: General LMA Mental Status: Awake Pain Control: Satisfactory Nausea/Vomiting: None Hydration: Adequate Anesthesia-Related Issues: No Anes. Related Issues
== END 2024-09-15 11:23 | disposition home or self-care (01) ==
PROVIDERS: PCP Nurse Practitioner Family; Visit Provider Surgery
PROC: (CPT 11771; principal; 2024-09-15 09:40)
DX: L05.91 Pilonidal cyst without abscess (principal); K21.9 Gastro-esophageal reflux disease without esophagitis; Z98.890 Other specified postprocedural states
CPT/HCPCS: 11771; 88304; J0690; J1100; J1885; J2003; J2250; J2704; J2795; J3010

== ENCOUNTER → 2024-09-15 07:32 | Outpatient (BNV) | payer OTHER, SELFPAY | PROVIDERS: PCP Nurse Practitioner Family; Visit Provider Surgery | DX: L05.91 Pilonidal cyst without abscess (principal) | CPT/HCPCS: 11770 ==

== ENCOUNTER 2024-09-27 08:46 | Outpatient (AMB) | payer OTHER, SELFPAY ==
--- NOTE | 2024-09-27 08:50 | MHC.OFFVIS ---
Intake Visit Reasons: S/P WLE pilonidal cyst Intake Note: Patient here for s/p wide local excision pilonidal cyst of cleft. Reports incision healing well. Patient c/o: had rxn to oxycodone. Alternating tylenol and Motrin. Reports constant oozing yellow, brown discharge that started since taking the Motrin and tylenol. Surgery: 09-15-2024 Visitor Services Coordinator Required: No Accompanied by: Self / Same As Patient Allergies No Known Allergies Allergy (Verified 09/27/24 08:51) HPI Comments Details: Patient was presents for 1st postop visit status post pilonidal cyst excision. Aside from incisional discomfort which is improving he is otherwise doing well. He is moderately active which I have discouraged him to do until the areas fully healed. He has had some clear drainage which is expected. [facility] Medical History GERD (gastroesophageal reflux disease) Surgical History S/P lumbar microdiscectomy Hx of cholecystectomy Hx of circumcision History of surgery H/O wrist surgery Family History Father HTN (hypertension) Heart disease Mother No problems noted. Brother No problems noted. Brother No problems noted. Sister No problems noted. Maternal Grandmother No problems noted. Maternal Grandfather No problems noted. Paternal Grandfather No problems noted. Paternal Grandmother No problems noted. Social History Housing: House Alcohol intake: current Alcohol intake frequency: holidays/special occasions only Comment: counts correct Patient Tobacco Use Status: Current everyday Tobacco user Tobacco use type: Smokeless Tobacco e-Cigarette/Vaping Use: Never Used Second Hand Smoke Exposure: No service: Yes Current occupational status: employed Current occupation: [employer] Current occupational exposures/hazards: No Cognitive needs: No Hearing needs: No Vision needs: No Physical Exam Back/Spine/Pelvis Other: Incision clean dry and intact. Most inferior area some mild separation but no evidence of any infection. Sutures left in tacked until next visit Assessment & Plan Assessment & Plan (1) Status post surgical removal of pilonidal cyst: Code(s): Z98.890 - Other specified postprocedural states Category: Medical Plan Patient was again been strongly encouraged to avoid strenuous activities. He will see me in 1 week's time for wound check and suture removal. All questions answered. Coding Level of Care Code Global (82337) Diagnoses Status post surgical removal of pilonidal cyst Z98.890
--- OUTSIDE RECORDS SUMMARY | 2024-09-27 09:10 | XMS_ITS ---
Author Name 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
--- OUTSIDE RECORDS SUMMARY | 2024-09-27 09:10 | XMS_ITS | Clinical Summary ---
Author Organization Formerly [facility] Address [address] [place] [address] Care Team Providers Care Hvac/R Instructor Name Role Phone Pcp, No Primary Care [...] Inactivated Comments 12/17/2021 7:53 AM Care Teams Hvac/R Instructor Relationship Specialty Start Date End Date Pcp, No PCP - General General Medicine 12/02/21
--- OUTSIDE RECORDS SUMMARY | 2024-09-27 09:10 | XMS_ITS | Encounter Summary ---
Author Organization [facility] Address [address] [place] [address] Care Team Providers Care Inclusion Internship Name Role Phone Pcp, No Primary Care Provider Unavailabl e Encounter Details Date Type Department Care Team (Latest Contact Info) Description 06/05/2020 Lab Requisition [facility] COVID Drive Through [address] [place] [address] [address] [place] [phone] Cristi Holcomb PA-C [address] [place] [address] [phone] Encounter for laboratory testing for COVID-19 virus [...] (COVID-19), Qual (06/05/2020 6:46 PM EST) Pathologist [facility] SARS CoV 2 RNA, Qual NOT DETECTED NOT DETECTED 06/09/2020 5:00 PM EST [facility] Comment: A Not Detected (negative) [...] providers and patients using the following websites: https://www.Sociagram.com.TechDevils/home/Covid-19/HCP/QuestLDTP/ fact-sheet https://www.Sociagram.com.TechDevils/home/Covid-19/Patients/QuestLDTP/ fact-sheet.html This test has been authorized by the FDA under an Emergency Use Authorization (EUA) for use by authorized laboratories. Due to the current public health emergency, [facility] is receiving a high volume of samples [...] about COVID-19 can be found at the [employer] website: www.Beatsy.TechDevils/Covid19. Microbiology Nasopharyngeal swab / Unknown 06/05/2020 6:46 PM EST 06/05/2020 6:46 PM EST [facility] - 06/09/2020 5:00 PM EST Performing Organization Information: ?Site ID: [id number] ?Name: [employer] ?Address: [address] [place] [address] [address] [address] ?Director: BARBARA YEN MD Performed at [facility] License number [id number] Cristi Holcomb PA-C BODY FLUIDS AND S TOOLS ORDERABLES Performing Organization Address City/State/[facility] Co de Phone Number [facility] documented in this encounter Visit Diagnoses Diagnosis Encounter for laboratory testing for COVID-19 virus documented in this encounter Care Teams Inclusion Internship Relationship Specialty Start Date End Date Pcp, No PCP - General General Medicine 12/02/21 documented as of this encounter
--- OUTSIDE RECORDS SUMMARY | 2024-09-27 09:10 | XMS_ITS | Encounter Summary ---
Author Organization Formerly [facility] Address [address] [place] [address] Care Team Providers Care In Class Special Education Teacher Name Role Phone Pcp, No Primary Care Provider Unavailabl e Encounter Details Date Type Department Care Team (Late st Contact Info) Description 02/18/2022 Scanned Document [facility] General Surgery- [address] [place] [phone] Hiram Henderson MD [address] [place] [address] Social History Tobacco Use Types Packs/Day [...] on filedocumented in this encounter Care Teams In Class Special Education Teacher Relationship Specialty Start Date End Date Pcp, No PCP - General General Medicine 12/02/21 documented as of this encounter
== END 2024-09-27 09:05 | disposition home or self-care (01) ==
LOC: HO.HGS 08:46
PROVIDERS: PCP Nurse Practitioner Family; Visit Provider Surgery
DX: Z98.890 Other specified postprocedural states (principal)
CPT/HCPCS: 99024

== ENCOUNTER → 2024-09-27 08:46 | Outpatient (BNVA) | payer OTHER, SELFPAY | PROVIDERS: PCP Nurse Practitioner Family; Visit Provider Surgery | DX: Z48.817 Encounter for surgical aftercare following surgery on the skin and subcutaneous tissue (principal); Z98.890 Other specified postprocedural states | CPT/HCPCS: 99212 ==

== ENCOUNTER 2024-10-04 09:23 | Outpatient (AMB) | payer OTHER, SELFPAY ==
[2024-10-04 09:26] VITALS: BMI 30.8
--- NOTE | 2024-10-04 09:26 | MHC.OFFVIS ---
Vital Signs 10/04/24 09:26 Height 5 ft 6.5 in Weight 194 lb 0.108 oz BMI 30.8 Blood Pressure Location Lt brachial Position Sitting Intake Visit Reasons: stitch removal S/P WLE pilonidal cyst Allergies No Known Allergies Allergy (Verified 09/27/24 08:51) HPI Comments Details: Patient was presents for follow-up status post pilonidal cyst excision. Second postop visit. He unknowingly had some strenuous activities were he thinks he opened up his incision. He has had some drainage from this. Clear fluid. No other issues or complaints [facility] Medical History GERD (gastroesophageal reflux disease) Surgical History S/P lumbar microdiscectomy Hx of cholecystectomy Hx of circumcision History of surgery H/O wrist surgery Family History Father HTN (hypertension) Heart disease Mother No problems noted. Brother No problems noted. Brother No problems noted. Sister No problems noted. Maternal Grandmother No problems noted. Maternal Grandfather No problems noted. Paternal Grandfather No problems noted. Paternal Grandmother No problems noted. Social History Housing: House Alcohol intake: current Alcohol intake frequency: holidays/special occasions only Comment: counts correct Patient Tobacco Use Status: Current everyday Tobacco user Tobacco use type: Smokeless Tobacco e-Cigarette/Vaping Use: Never Used Second Hand Smoke Exposure: No service: Yes Current occupational status: employed Current occupation: [employer] Current occupational exposures/hazards: No Cognitive needs: No Hearing needs: No Vision needs: No Physical Exam Vital Signs: BMI result Body Mass Index 30.8 Back/Spine/Pelvis Other: Patient has partially the distal portion of his incision. Wound was granulating well with serous output. No evidence of any infection or cellulitis. Dressing applied. Assessment & Plan Assessment & Plan (1) Encounter for postoperative wound check: Code(s): Z48.89 - Encounter for other specified surgical aftercare Category: Surgical Plan Current plan is have the patient continue local therapy in the form of dressing changes may shower daily and again avoid strenuous activities. This was healed by secondary intention. All questions answered. He will see me as directed or p.r.n.. No for employment provided. Coding Level of Care Code Global (22892) Diagnoses Encounter for postoperative wound check Z48.89
--- OUTSIDE RECORDS SUMMARY | 2024-10-04 10:24 | XMS_ITS | Clinical Summary ---
Author Organization [facility] Address [address] [place] [address] Care Team Providers Care Box Office Agent Name Role Phone Pcp, No Primary Care [...] Inactivated Comments 12/17/2021 7:53 AM Care Teams Box Office Agent Relationship Specialty Start Date End Date Pcp, No PCP - General General Medicine 12/02/21
--- OUTSIDE RECORDS SUMMARY | 2024-10-04 10:24 | XMS_ITS | Encounter Summary ---
Author Organization [facility] Address [address] [place] [address] Care Team Providers Care Research Nurse Name Role Phone Pcp, No Primary Care Provider Unavailabl e Encounter Details Date Type Department Care Team (Latest Contact Info) Description 06/05/2020 Lab Requisition [facility] COVID Drive Through [address] [place] [address] [address] [place] [phone] Cristi Holcomb PA-C [address] [place] [address] [phone] Encounter for laboratory testing for COVID-19 virus [...] (COVID-19), Qual (06/05/2020 6:46 PM EST) Pathologist [facility] SARS CoV 2 RNA, Qual NOT DETECTED NOT DETECTED 06/09/2020 5:00 PM EST [facility] Comment: A Not Detected (negative) test result [...] providers and patients using the following websites: https://www.Tailored Republic.White Rock Networks/home/Covid-19/HCP/QuestLDTP/ fact-sheet https://www.Tailored Republic.White Rock Networks/home/Covid-19/Patients/QuestLDTP/ fact-sheet.html This test has been authorized by the FDA under an Emergency Use Authorization (EUA) for use by authorized laboratories. Due to the current public health emergency, [facility] is receiving a high volume of samples [...] about COVID-19 can be found at the [facility] website: www.Certified Security Solutions.White Rock Networks/Covid19. Microbiology Nasopharyngeal swab / Unknown 06/05/2020 6:46 PM EST 06/05/2020 6:46 PM EST [facility] - 06/09/2020 5:00 PM EST Performing Organization Information: ?Site ID: [id number] ?Name: [employer] ?Address: [address] [place] [address] [address] [address] ?Director: BARBARA YEN MD Performed at [facility] License number [id number] Cristi Holcomb PA-C BODY FLUIDS AND S TOOLS ORDERABLES Performing Organization Address City/State/[facility] Co de Phone Number [facility] documented in this encounter Visit Diagnoses Diagnosis Encounter for laboratory testing for COVID-19 virus documented in this encounter Care Teams Research Nurse Relationship Specialty Start Date End Date Pcp, No PCP - General General Medicine 12/02/21 documented as of this encounter
--- OUTSIDE RECORDS SUMMARY | 2024-10-04 10:24 | XMS_ITS | Encounter Summary ---
Author Organization [facility] Address [address] [place] [address] Care Team Providers Care Clinical Program Coordinator Name Role Phone Pcp, No Primary Care Provider Unavailabl e Encounter Details Date Type Department Care Team (Late st Contact Info) Description 02/18/2022 Scanned Document [facility] General Surgery- [address] [place] [phone] Hiram Henderson MD [address] [place] [address] Social History Tobacco Use Types Packs/Day [...] on filedocumented in this encounter Care Teams Clinical Program Coordinator Relationship Specialty Start Date End Date Pcp, No PCP - General General Medicine 12/02/21 documented as of this encounter
== END 2024-10-04 09:43 | disposition home or self-care (01) ==
LOC: HO.HGS 09:24
PROVIDERS: PCP Nurse Practitioner Family; Visit Provider Surgery
DX: Z48.89 Encounter for other specified surgical aftercare (principal)
CPT/HCPCS: 99024

== ENCOUNTER → 2024-10-04 09:23 | Outpatient (BNVA) | payer OTHER, SELFPAY | PROVIDERS: PCP Nurse Practitioner Family; Visit Provider Surgery | DX: Z09 Encounter for follow-up examination after completed treatment for conditions other than malignant neoplasm (principal); Z87.2 Personal history of diseases of the skin and subcutaneous tissue; Z98.890 Other specified postprocedural states | CPT/HCPCS: 99212 ==

== ENCOUNTER 2024-10-18 09:50 | Outpatient (AMB) | payer OTHER, SELFPAY ==
[2024-10-18 09:50] VITALS: BP 142/67; PULSE 83; O2SAT 100; BMI 31.2
--- NOTE | 2024-10-18 09:50 | MHC.OFFVIS ---
Vital Signs 10/18/24 09:50 Height 5 ft 6.5 in Weight 196 lb 3.382 oz BMI 31.2 BP 142/67 H Blood Pressure Location Lt brachial Position Sitting Pulse 83 Pulse Source Pulse Oximeter Pulse Oximetry (%) 100 Oxygen Delivery Method Room Air Intake Visit Reasons: 1 week stitch removal S/P WLE pilonidal cyst Intake Note: Patient here s/p wide local excision pilonidal cyst of cleft. Reports incision healing well. Patient c/o: None [facility] 10-04-2024 Allergies No Known Allergies Allergy (Verified 10/18/24 09:52) HPI Comments Details: Patient presents for follow-up status post pilonidal cyst excision. No wound issues or complaints. [facility] Medical History GERD (gastroesophageal reflux disease) Surgical History S/P lumbar microdiscectomy Hx of cholecystectomy Hx of circumcision History of surgery H/O wrist surgery Family History Father HTN (hypertension) Heart disease Mother No problems noted. Brother No problems noted. Brother No problems noted. Sister No problems noted. Maternal Grandmother No problems noted. Maternal Grandfather No problems noted. Paternal Grandfather No problems noted. Paternal Grandmother No problems noted. Social History Housing: House Alcohol intake: current Alcohol intake frequency: holidays/special occasions only Comment: counts correct Patient Tobacco Use Status: Current everyday Tobacco user Tobacco use type: Smokeless Tobacco e-Cigarette/Vaping Use: Never Used Second Hand Smoke Exposure: No service: Yes Current occupational status: employed Current occupation: [employer] Current occupational exposures/hazards: No Cognitive needs: No Hearing needs: No Vision needs: No Physical Exam Vital Signs: Last Vital Signs Pulse 83 10/18/24 09:50 BP 142/67 H 10/18/24 09:50 Pulse Ox 100 10/18/24 09:50 Oxygen Delivery Method Room Air 10/18/24 09:50 BMI result Body Mass Index 31.2 Back/Spine/Pelvis Other: Inferior part of pilonidal wound has opened but is healing by secondary intention. Healthy granulating tissue. Superior part is healing by 1st intention. Assessment & Plan Assessment & Plan (1) Encounter for postoperative wound check: Code(s): Z48.89 - Encounter for other specified surgical aftercare Category: Surgical Plan Patient was been given local instructions, should avoid strenuous activities next few weeks time, and will be given a note regarding light duty and will otherwise follow-up p.r.n.. All questions answered. Coding Level of Care Code Global (30972) Diagnoses Encounter for postoperative wound check Z48.89
--- OUTSIDE RECORDS SUMMARY | 2024-10-18 11:19 | XMS_ITS | Encounter Summary ---
Author Organization [facility] Address [address] [place] [address] Care Team Providers Care Marine Resource Economist Name Role Phone Pcp, No Primary Care Provider Unavailabl e Encounter Details Date Type Department Care Team (Latest Contact Info) Description 06/05/2020 Lab Requisition [facility] COVID Drive Through [address] [place] [address] [address] [place] [phone] Cristi Holcomb PA-C [address] [place] [address] [phone] Encounter for laboratory testing for COVID-19 virus [...] (COVID-19), Qual (06/05/2020 6:46 PM EST) Pathologist [facility] SARS CoV 2 RNA, Qual NOT DETECTED NOT DETECTED 06/09/2020 5:00 PM EST [facility] Comment: A Not Detected (negative) test [...] providers and patients using the following websites: https://www.OfferLounge.deltaDNA/home/Covid-19/HCP/QuestLDTP/ fact-sheet https://www.OfferLounge.deltaDNA/home/Covid-19/Patients/QuestLDTP/ fact-sheet.html This test has been authorized by the FDA under an Emergency Use Authorization (EUA) for use by authorized laboratories. Due to the current public health emergency, [facility] is receiving a high volume of samples [...] about COVID-19 can be found at the [facility] website: www.COSMIC COLOR.deltaDNA/Covid19. Microbiology Nasopharyngeal swab / Unknown 06/05/2020 6:46 PM EST 06/05/2020 6:46 PM EST [facility] - 06/09/2020 5:00 PM EST Performing Organization Information: ?Site ID: [id number] ?Name: [employer] ?Address: [address] [place] [address] [address] [address] ?Director: BARBARA YEN MD [facility]formed at [facility] License number [id number] Cristi Holcomb PA-C BODY FLUIDS AND S TOOLS ORDERABLES Performing Organization Address City/State/[facility] Co de Phone Number [facility] documented in this encounter Visit Diagnoses Diagnosis Encounter for laboratory testing for COVID-19 virus documented in this encounter Care Teams Marine Resource Economist Relationship Specialty Start Date End Date Pcp, No PCP - General General Medicine 12/02/21 documented as of this encounter
--- OUTSIDE RECORDS SUMMARY | 2024-10-18 11:19 | XMS_ITS | Encounter Summary ---
Author Organization [facility] Address [address] [place] [address] Care Team Providers Care Wharfmaster Name Role Phone Pcp, No Primary Care Provider Unavailabl e Encounter Details Date Type Department Care Team (Late st Contact Info) Description 02/18/2022 Scanned Document [facility] General Surgery- [address] [place] [phone] Hiram Henderson MD [address] [place] [address] Social History Tobacco Use Types Packs/Day [...] on filedocumented in this encounter Care Teams Wharfmaster Relationship Specialty Start Date End Date Pcp, No PCP - General General Medicine 12/02/21 documented as of this encounter
--- OUTSIDE RECORDS SUMMARY | 2024-10-18 11:19 | XMS_ITS | Clinical Summary ---
Author Organization [facility] Address [address] [place] [address] Care Team Providers Care Manual Tester Name Role Phone Pcp, No Primary Care [...] Inactivated Comments 12/17/2021 7:53 AM Care Teams Manual Tester Relationship Specialty Start Date End Date Pcp, No PCP - General General Medicine 12/02/21
== END 2024-10-18 10:11 | disposition home or self-care (01) ==
LOC: HO.HGS 09:50
PROVIDERS: PCP Nurse Practitioner Family; Visit Provider Surgery
DX: Z48.89 Encounter for other specified surgical aftercare (principal)
CPT/HCPCS: 99024

== ENCOUNTER → 2024-10-18 09:50 | Outpatient (BNVA) | payer OTHER, SELFPAY | PROVIDERS: PCP Nurse Practitioner Family; Visit Provider Surgery | DX: Z48.1 Encounter for planned postprocedural wound closure (principal); Z98.890 Other specified postprocedural states | CPT/HCPCS: 99212 ==